=== PATIENT | female | born 1995 | race Two or more races ===

== ENCOUNTER → 2017-06-27 | Outpatient (REF) | payer OTHER ==
[2017-06-27 11:35] LABS: BASO % 0.7 % (0.0-1.0); EOS # 0.1 K/mm3 (0.0-0.50); EOS % 1.3 % (0.0-3.0); LARGE UNSTAINED CELL # 0.1 K/mm3 (0.0-0.4); LARGE UNSTAINED CELL % 1.7 % (0.0-4.0); LYMPH # 1.6 K/mm3 (1.5-6.5); LYMPH % 25.6 % (24.0-44.0); MEAN CORPUSCULAR HGB CONC 32.7 g/dl (32.0-36.5); MEAN CORPUSCULAR VOLUME 82.5 fl (80.0-96.0); MONO # 0.5 K/mm3 (0.0-0.8); MONO % 8.2 % (0.0-5.0); NEUTROPHILS # 3.8 K/mm3 (1.8-7.7); NEUTROPHILS % 62.5 % (36.0-66.0); PLATELET COUNT, AUTOMATED 426 k/mm3 (150-450); RED CELL DISTRIBUTION WIDTH 13.7 % (11.5-14.5); WHITE BLOOD COUNT 6.1 K/mm3 (4.0-10.0)
[2017-06-27 14:40] LABS: ALBUMIN 3.7 GM/DL (3.2-5.2); ALKALINE PHOSPHATASE 94 U/L (45-117); ALT/SGPT 23 U/L (12-78); ANION GAP 8 MEQ/L (8-16); AST/SGOT 17 U/L (15-37); BILIRUBIN,TOTAL 0.4 MG/DL (0.2-1.0); BLOOD UREA NITROGEN 7 MG/DL (7-18); CALCIUM LEVEL 9.2 MG/DL (8.5-10.1); CARBON DIOXIDE LEVEL 28 MEQ/L (21-32); CHLORIDE LEVEL 106 MEQ/L (98-107); CHOLESTEROL LEVEL 183 MG/DL (<200); FREE T4 1.08 NG/DL (0.78-1.33); GLUCOSE, FASTING 79 MG/DL (70-105); POTASSIUM SERUM 4.6 MEQ/L (3.5-5.1); SODIUM LEVEL 142 MEQ/L (136-145); TOTAL PROTEIN 7.4 GM/DL (6.4-8.2); TRIGLYCERIDES LEVEL 101 MG/DL (<150)
== END ==
LOC: M SFHCPLAZ 09:17
PROVIDERS: ATTEND Physician Assistant Medical
DX: Z00.00 Encounter for general adult medical examination without abnormal findings (principal); Z13.220 Encounter for screening for lipoid disorders

== ENCOUNTER → 2019-04-12 | Outpatient (REF) | payer OTHER ==
[2019-04-16 10:26] LABS: APPEARANCE, URINE TURBID (CLEAR); BACTERIA, URINE AUTO NEGATIVE (NEGATIVE); BILIRUBIN, URINE AUTO NEGATIVE (NEGATIVE); BLOOD, URINE BLOOD 3+ (NEGATIVE); COLOR, URINE AMBER (YELLOW); GLUCOSE, URINE (UA) AUTO NEGATIVE (NEGATIVE); KETONE, URINE AUTO NEGATIVE (NEGATIVE); LEUKOCYTE ESTERASE, URINE AUTO 1+ (NEGATIVE); NITRITE, URINE AUTO NEGATIVE (NEGATIVE); PROTEIN, URINE AUTO NEGATIVE (NEGATIVE); RBC, URINE AUTO 32 /HPF (0-3); SPECIFIC GRAVITY URINE AUTO 1.025 (1.002-1.035); SQUAMOUS EPITHELIAL CELL UR AU 1 /HPF (0-6); UROBILINOGEN, URINE AUTO 0.2 mg/dL (0.0-2.0); WBC, URINE AUTO 17 /HPF (0-3)
== END ==
LOC: M SFHCPLAZ 10:05
PROVIDERS: ATTEND Nurse Practitioner Family
DX: N92.0 Excessive and frequent menstruation with regular cycle (principal)

== ENCOUNTER → 2019-04-12 | Outpatient (REF) | payer OTHER ==
[2019-04-12 17:01] LABS: HEMATOCRIT 42.6 % (36.0-47.0); HEMOGLOBIN 14.1 g/dl (12.0-15.5); MEAN CORPUSCULAR HEMOGLOBIN 29.8 pg (27.0-33.0); MEAN CORPUSCULAR HGB CONC 33.1 g/dl (32.0-36.5); MEAN CORPUSCULAR VOLUME 90.1 fl (80.0-96.0); PLATELET COUNT, AUTOMATED 374 10^3/uL (150-450); RED BLOOD COUNT 4.73 10^6/uL (4.00-5.40); WHITE BLOOD COUNT 8.2 10^3/uL (4.0-10.0)
== END ==
LOC: M SFHCPLAZ 12:41
PROVIDERS: ATTEND Nurse Practitioner Family
DX: N92.0 Excessive and frequent menstruation with regular cycle (principal)

== ENCOUNTER → 2019-04-23 | Outpatient (CLI) | payer OTHER ==
--- NOTE | 2019-04-24 03:59 | REP ---
Clinical: Menorrhagia . Technique: Transabdominal pelvic ultrasound. Findings: Bladder is unremarkable and measures 11.3 x 9.7 x 9.0 cm . Normal anteverted uterus measures 6.7 x 2.5 x 4.1 cm . The endometrial complex measures 3.2 mm thickness. No discrete uterine or endometrial abnormalities are appreciated. Bilateral ovaries are normal in appearance. Right ovary measures 3.2 x 1.6 x 1.4 cm with 1.9 cm dominant follicle. Left ovary measures 2.6 x 0.8 x 2.6 cm. No pelvic fluid or adnexal mass lesion Impression: 1. Normal pelvic ultrasound
== END ==
LOC: M WHC 08:32
PROVIDERS: ATTEND Nurse Practitioner Family
DX: N92.0 Excessive and frequent menstruation with regular cycle (principal)

== ENCOUNTER → 2019-06-21 | Outpatient (REF) | payer OTHER | LOC: M SFHCPLAZ 10:00 | PROVIDERS: ATTEND Physician Assistant Medical | DX: Z30.9 Encounter for contraceptive management, unspecified (principal) ==

== ENCOUNTER → 2019-09-13 | Outpatient (REF) | payer OTHER | LOC: M SFHCWAGY 13:41 | PROVIDERS: ATTEND Nurse Practitioner Women's Health | DX: Z12.4 Encounter for screening for malignant neoplasm of cervix (principal); R87.612 Low grade squamous intraepithelial lesion on cytologic smear of cervix (LGSIL) ==

== ENCOUNTER → 2020-09-23 | Outpatient (CLI) | payer SELFPAY | LOC: M LABSMTC 11:16 | PROVIDERS: ATTEND Pediatrics | DX: Z20.828 Contact with and (suspected) exposure to other viral communicable diseases (principal) ==

== ENCOUNTER → 2020-11-27 | Outpatient (CLI) | payer SELFPAY | LOC: M LABSMTC 09:48 | PROVIDERS: ATTEND Pediatrics | DX: Z20.822 Contact with and (suspected) exposure to COVID-19 (principal) ==

== ENCOUNTER 2021-06-17 15:03 | Emergency (ER) | payer OTHER, BC ==
[~2021-06-17] VITALS: Ht 170.2 cm; Wt 79.8 kg
[2021-06-17 15:04] VITALS: BP 137/81
[2021-06-17] MEDS ORDERED: ZOLO100T PO (15:38)
[2021-06-17] MEDS ORDERED: DROS3TAB PO (15:38)
[2021-06-17 17:50] LABS: BASO # 0.1 10^3/uL (0.0-0.2); BASO % 0.6 % (0.0-1.0); EOS # 0.1 10^3/uL (0.0-0.5); EOS % 1.4 % (0.0-3.0); HEMATOCRIT 36.7 % (36.0-47.0); HEMOGLOBIN 12.1 g/dl (12.0-15.5); LYMPH # 2.9 10^3/uL (1.5-5.0); LYMPH % 34.1 % (24.0-44.0); MEAN CORPUSCULAR HEMOGLOBIN 28.1 pg (27.0-33.0); MEAN CORPUSCULAR VOLUME 85.2 fl (80.0-96.0); MONO # 0.9 10^3/uL (0.0-0.8); MONO % 10.1 % (2.0-8.0); NEUTROPHILS # 4.5 10^3/uL (1.5-8.5); NEUTROPHILS % 53.6 % (36.0-66.0); PLATELET COUNT, AUTOMATED 409 10^3/uL (150-450); RED BLOOD COUNT 4.31 10^6/uL (4.00-5.40); WHITE BLOOD COUNT 8.4 10^3/uL (4.0-10.0)
[2021-06-17 18:15] LABS: ALBUMIN 3.8 GM/DL (3.2-5.2); ALT/SGPT 32 U/L (12-78); BILIRUBIN,TOTAL 0.2 MG/DL (0.2-1.0); BLOOD UREA NITROGEN 9 MG/DL (7-18); CALCIUM LEVEL 9.1 MG/DL (8.5-10.1); CARBON DIOXIDE LEVEL 29 MEQ/L (21-32); CHLORIDE LEVEL 106 MEQ/L (98-107); CREATININE FOR GFR 0.84 MG/DL (0.55-1.30); GLOMERULAR FILTRATION RATE > 60.0 (>60); GLUCOSE, FASTING 84 MG/DL (70-100); POTASSIUM SERUM 4.4 MEQ/L (3.5-5.1); SODIUM LEVEL 138 MEQ/L (136-145); TOTAL PROTEIN 7.4 GM/DL (6.4-8.2)
[2021-06-17 18:24] LABS: HEPATITIS B SURFACE ANTIBODY NEGATIVE (POSITIVE)
[2021-06-17 18:34] LABS: HEPATITIS B SURFACE ANTIGEN NEGATIVE (NEGATIVE)
[2021-06-17 19:03] LABS: HEPATITIS C VIRUS ABY INDEX 0.1 INDEX (<0.8)
[2021-09-21] MEDS ORDERED: VITMTA PO (14:20)
== END 2021-06-17 18:10 | disposition home or self-care (01) ==
LOC: M ED 15:03
DX: Z77.21 Contact with and (suspected) exposure to potentially hazardous body fluids (principal); Z79.899 Other long term (current) drug therapy; Z79.3 Long term (current) use of hormonal contraceptives

== ENCOUNTER → 2021-09-23 | Outpatient (CLI) | payer BC, OTHER ==
[~2021-09-23] MED LIST: DROS3TAB PO; VITMTA PO; ZOLO100T PO
== END ==
LOC: M LABSMTC 10:18
PROVIDERS: ATTEND Anesthesiology
DX: Z11.52 Encounter for screening for COVID-19 (principal)

== ENCOUNTER 2021-09-28 06:05 | Observation (INO) | payer BC ==
[~2021-09-28] VITALS: Ht 167.6 cm; Wt 79.4 kg
[2021-09-28] VITALS (7 sets, daily range): BP systolic 107–132; BP diastolic 63–81
[~2021-09-28 06:05] MED LIST changes: +LIDOCAINE 1% MDV 20ML VIAL SQ PRN; +LR 1,000 ML IV ONE; +ceFAZolin SOD 2 GM in IV 1 EA IV ONE
--- OUTSIDE RECORDS SUMMARY | 2021-09-28 06:10 | CCD | Continuity of Care Document ---
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 AUTM [phone] [place]arg[place] AUTM [phone] Problems Description No Information Available Social History Type Date Description Comments Sex Female ETOH Use Rarely Tobacco Use Start: Unknown Home Is Smoke Free Allergies and adverse reactions Description No Known Drug Allergies Medications Active Medications SIG Qnty Indications Ordering Provide r Date Gianna Unknown Sertraline HCL 100mg Tablets Unknown Multi Vitamin Unknown Immunizations Description No Information Available Vital Signs Date Vital Result Comment 09/15/2021 4:01pm BP Systolic 122 mmHg BP Diastolic 74 mmHg Heart Rate 80 /min Respiratory Rate 16 /min Body Temperature 97.9 F Height 66 inches 5'6" Weight 173.00 lb BMI (Body Mass Index) 27.9 kg/m2 [place] Body Weight 130 lb Weight 78.473 kg BSA (Body Surface Area) 1.88 m2 05/03/2021 9:27am BP Systolic 128 mmHg BP Diastolic 84 mmHg Heart Rate 76 /min Respiratory Rate 16 /min Body Temperature 98.4 F Height 66 inches 5'6" Weight 174.00 lb BMI (Body Mass Index) 28.1 kg/m2 [place] Body Weight 130 lb Weight 78.926 kg BSA (Body Surface Area) 1.88 m2 Results Description No Information Available Procedures Date Code Description Status 05/03/2021 87063 Office/Outpatient New Moderate M DM 45-59 Minutes Completed Medical Devices Description No Information Available Encounters Type Date Location Provider Dx Diagnosis Office Visit 05/03/2021 9:15a [facility] Libby Hicks, DO N62 Hypertrophy of breast N64.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 of breast Assessments Date Code Description Provider 09/15/2021 N62 Hypertrophy of breast Libby Pale y, DO 09/15/2021 N64.81 Ptosis of breast Libby Marisel, DO 09/15/2021 Z01.818 Encounter for other preprocedura l examination Libby Marisel, DO 05/03/2021 N62 Hypertrophy of breast Libby Pale y, DO 05/03/2021 N64.81 Ptosis of breast Libby Marisel, DO Plan of Treatment Future Appointment(s):* 09/28/2021 7:30 am - Libby Hicks DO at [facility] Surgery * 10/04/2021 10:15 am - Libby Hicks DO at [facility] Plastic [facility] Functional Status Description No Information Available Mental Status Description No Information Available Referrals Description No Information Available
--- OUTSIDE RECORDS SUMMARY | 2021-09-28 06:10 | CCD | Continuity of Care Document ---
Author Author Dalton CAPONE M.D. Organization Unknown Address [address] [place] [address] Phone [phone] Care Team Providers Care Bilingual Receptionist Name Role Phone Libby Joiner DO AUTM [phone] Problems Active Problems Provider Date Generalized anxiety disorder Talisha Stock FNP Onset: 08/2020 Social History Type Date Description Comments Sex Unknown Tobacco Use Start: Unknown End: Unknown Quit vape d for 3 months ETOH Use Occasionally consumes alcohol Tobacco Use Start: Unknown Patient has never smoked Recreational Drug Use Denies Drug Use Smoking Status Reviewed: 03/10/21 Patient has never smoked Exercise Type/Frequency Does not exercise Tattoo/Piercing Pierced ears Sun Exposure Minimum amount of sun exposure Sun Exposure Uses sunscreen Sun Exposure Uses greater than 30 SPF Sun Exposure Has experienced blistering from sunburns Sun Exposure History of sunburn Sun Exposure Does not use tanning beds Seat Belt/Car Seat Always uses seat belt Bike Helmet does not ride Smoke Alarms Yes Smoke Alarms Carbon Monoxide Detector: Yes Allergies and adverse reactions Description No Known Drug Allergies Medications Active Medications SIG Qnty Indications Ordering Provide r Date Drospirenone-Ethinyl Estradiol 3-0.03mg Tablets Take 1 Tablet By Mouth Daily 84tabs Z00.00 Deyvi Stock FNP 06/02/2021 Sertraline HCL 100mg Tablets Take 1 Tablet By Mouth Every Day 90tabs F41.1 Talisha Stock FNP 03/04/20 20 Hydroxyzine HCL 10mg Tablets 1-2 tab by mouth three times a day as needed anxiety 60tabs F41.1 Talisha Campos ch, FNP 01/20/2020 Probiotic Capsules 1 by mout h daily Unknown Immunizations CPT Code Status Date Vaccine Lot # [id number] Given 12/17/2020 Moderna Sars-(Co vid-19) vaccine, mRNA, LNP-S, PF, 100 mcg/ 0.5 mL [id number] Given 11/17/2020 Moderna Sars-(Co vid-19) vaccine, mRNA, LNP-S, PF, 100 mcg/ 0.5 mL Vital Signs Date Vital Result Comment 03/10/2021 4:50pm BP Systolic 128 mmHg BP Diastolic 89 mmHg Heart Rate 82 /min Body Temperature 97.3 F Respiratory Rate 16 /min Height 67 inches 5'7" Weight 174.00 lb O2 % BldC Oximetry 98 % Peak Expiratory Flow Rate 419 Estimated Peak Flow Rate Last Menstrual Period 7163394 [place] Body Weight 135 lb BMI (Body Mass Index) 27.2 kg/m2 10/08/2020 8:42am BP Systolic 115 mmHg BP Diastolic 70 mmHg Heart Rate 99 /min Body Temperature 96.8 F Respiratory Rate 17 /min Height 67 inches 5'7" Weight 164.12 lb O2 % BldC Oximetry 99 % Peak Expiratory Flow Rate 419 Estimated Peak Flow Rate Last Menstrual Period [id number] 15 days long [place] Body Weight 135 lb BMI (Body Mass Index) 25.7 kg/m2 Results Test Acquired Date Facility Test Result H/L Range Note Coronavirus 2019 Nasopharygeal 09/23/[address]21 [address] [place], [place] [id number] [phone] Coronavirus 2019 Nasopharygeal ASSAY INFORMATIO <SEE N OTE> 1 CBC With Differential 06/17/2021 [place] [id number] [phone] White Blood Count 8.4 10 Normal 4.0-10.0 Red Blood Count 4.31 10 Normal 4.00-5.40 Hemoglobin 12.1 g/dL Normal 12.0-15.5 Hematocrit 36.7 % Normal 36.0-47.0 Mean Corpuscular Volume 85.2 fl Normal 80.0-96.0 Mean Corpuscular Hemoglobin 28.1 pg Normal 27.0-33.0 Mean Corpuscular HGB Conc 33.0 g/dL Normal 32.0-36.5 Red Cell Distribution Width 11.7 % Normal 11.5-14.5 Platelet Count, Automated 409 10 Normal 150-450 Neutrophils % 53.6 % Normal 36.0-66.0 Lymph % 34.1 % Normal 24.0-44.0 [place] % 10.1 % High 2.0-8.0 Eos % 1.4 % Normal 0.0-3.0 Baso % 0.6 % Normal 0.0-1.0 Immature Granulocyte % 0.2 % Normal 0-3.0 Nucleated Red Blood Cell % 0.0 % Normal 0-0 Neutrophils # 4.5 10 Normal 1.5-8.5 Lymph # 2.9 10 Normal 1.5-5.0 [place] # 0.9 10 High 0.0-0.8 Eos # 0.1 10 Normal 0.0-0.5 Baso # 0.1 10 Normal 0.0-0.2 Comprehensive Metabolic Profil 06/17/[address] [place] [address] [phone] Glucose, Fasting 84 mg/dL Normal 70-100 Blood Urea Nitrogen 9 mg/dL Normal 7-18 Creatinine For GFR 0.84 mg/dL Normal 0.55-1.30 Glomerular Filtration Rate > 60.0 Normal >60 2 Sodium Level 138 mEq/L Normal 136-145 Potassium Serum 4.4 mEq/L Normal 3.5-5.1 Chloride Level 106 mEq/L Normal 98-107 Carbon Dioxide Level 29 mEq/L Normal 21-32 Anion Gap 3 mEq/L Low 8-16 Calcium Level 9.1 mg/dL Normal 8.5-10.1 Ast/Sgot 22 U/L Normal 7-37 Alt/SGPT 32 U/L Normal 12-78 Alkaline Phosphatase 79 U/L Normal 45-117 Bilirubin,Total 0.2 mg/dL Normal 0.2-1.0 Total Protein 7.4 GM/DL Normal 6.4-8.2 Albumin 3.8 GM/DL Normal 3.2-5.2 Albumin/Globulin Ratio 1.1 Low 1.2-2.2 Laboratory test finding 06/17/2021 [place] [address] [phone] Hepatitis C Virus Yelena Index 0.1 INDEX Normal <0.8 3 Hepatitis B Surface Antigen NEGATIVE Normal Negative Hepatitis B Surface Antibody NEGATIVE Normal Positive 1 ASSAY INFORMATION: Real Time RT-PCR NOTE: The COVID-19 assay has been cleared by the U.S. Food and Drug Administration under the Emergency Use Authorization (EUA). [facility] and [facility] are designated as high complexity laboratories by the Clinical Laboratory Improvement Amendments of 1988(CLIA) and are qualified to perform this test. 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 Procedures Description No Information Available Medical Devices Description No Information Available Encounters Description No Information Available Assessments Description No Information Available Plan of Treatment Future Appointment(s):* 10/05/2021 9:00 am - Talisha Stock FNP at Main Office 03/10/2021 - Talisha Stock FNP* N92.0 Excessive and frequent menstruation with regular cycle* Comments:* start Lizeth 28 and see response * M54.6 Pain in thoracic spine* Comments:* refer for breast reduction surgery * All * New Medication:* Lizeth 28 3-0.03 mg - one po daily Functional Status Functional Condition Comment Date Status Glasses Active Independent with all ADL's Activ e Independent with all IADL's Acti ve Mental Status Mental Condition Comment Date Status None Active Can Understand Information Activ e Referrals Description No Information Available
--- OUTSIDE RECORDS SUMMARY | 2021-09-28 06:10 | CCD | Continuity of Care Document ---
Author Author Dalton HICKS DO Organization Unknown Address [address] [place] [address] Phone [phone] Care Team Providers Care Sliver Cutter Name Role Phone Hanna Norris MD AUTM [phone] AUTM Unavailable Talisha Stock N.P. AUTM [phone] [place] AUTM [phone] Problems Description No Information Available Social History [...] Available Vital Signs Date Vital Result Comment 05/03/2021 9:27am BP Systolic 128 mmHg BP Diastolic 84 mmHg Heart Rate 76 /min Respiratory Rate 16 /min Body Temperature 98.4 F Height 66 inches 5'6" Weight 174.00 lb BMI (Body Mass Index) 28.1 kg/m2 [place] Body Weight 130 lb Weight 78.926 kg BSA (Body Surface Area) 1.88 m2 08/06/2012 3:17pm Body Temperature 98.0 F Height 66 inches 5'6" Weight 141.00 lb BMI (Body Mass Index) 22.8 kg/m2 Weight 63.958 kg Weight Percentile 83rd Height Percentile 80 % Results Description No Information Available Procedures Date Code Description Status 05/03/2021 57622 Office/Outpatient New Moderate M DM 45-59 Minutes Completed Medical Devices Description No Information Available Encounters Type Date Location Provider Dx Diagnosis Office Visit 05/03/2021 9:15a [facility] Libby Hicks DO N62 Hypertrophy of breast N64.81 Ptosis of breast Assessments Date Code Description Provider 05/03/2021 N62 Hypertrophy of breast Libby villa, DO 05/03/2021 N64.81 Ptosis of breast Libby Hicks DO Plan of Treatment Future Appointment(s):* 09/28/2021 7:30 am - Libby Hicks DO at [facility] * 10/04/2021 10:15 am - Libby Hicks DO at [facility] Functional Status Description No Information Available Mental Status Description No Information Available Referrals Description No Information Available
--- OUTSIDE RECORDS SUMMARY | 2021-09-28 06:10 | CCD ---
Author Author [facility] Organization [facility] Address Unknown Phone Unavailable Care Team Providers Care Trucking Manager Name Role Phone Pleskach, Talisha EDI MANAGER Unavailable Unavailable Pleskach, Talisha EDI MANAGER Unavailable Unavailable Pleskach, Talisha EDI MANAGER Unavailable Unavailable Pleskach, Talisha EDI MANAGER Unavailable Unavailable Pleskach, Talisha EDI MANAGER Unavailable Unavailable Pleskach, Talisha EDI MANAGER Unavailable Unavailable Pleskach, Talisha EDI MANAGER Unavailable Unavailable Pleskach, Talisha EDI MANAGER Unavailable Unavailable Pleskach, Talisha EDI MANAGER Unavailable Unavailable Pleskach, Talisha EDI MANAGER Unavailable Unavailable Pleskach, Talisha EDI MANAGER Unavailable Unavailable Pleskach, Talisha EDI MANAGER Unavailable Unavailable Pleskach, Talisha EDI MANAGER Unavailable Unavailable Pleskach, Talisha EDI MANAGER Unavailable Unavailable Pleskach, Talisha EDI MANAGER Unavailable Unavailable Pleskach, Talisha EDI MANAGER Unavailable Unavailable Pleskach, Talisha EDI MANAGER Unavailable Unavailable Pleskach, Talisha EDI MANAGER Unavailable Unavailable Pleskach, Talisha EDI MANAGER Unavailable Unavailable Pleskach, Talisha EDI MANAGER Unavailable Unavailable Pleskach, Talisha EDI MANAGER Unavailable Unavailable Pleskach, Talisha EDI MANAGER Unavailable Unavailable Pleskach, Talisha EDI MANAGER Unavailable Unavailable Pleskach, Talisha EDI MANAGER Unavailable Unavailable Pleskach, Talisha EDI MANAGER Unavailable Unavailable Pleskach, Talisha EDI MANAGER Unavailable Unavailable Pleskach, Talisha EDI MANAGER Unavailable Unavailable Pleskach, Talisha EDI MANAGER Unavailable Unavailable Pleskach, Talisha EDI MANAGER Unavailable Unavailable Pleskach, Talisha EDI MANAGER Unavailable Unavailable Pleskach, Talisha EDI MANAGER Unavailable Unavailable Pleskach, Talisha EDI MANAGER Unavailable Unavailable Pleskach, Talisha EDI MANAGER Unavailable Unavailable Pleskach, Talisha EDI MANAGER Unavailable Unavailable Pleskach, Talisha EDI MANAGER Unavailable Unavailable Pleskach, Talisha EDI MANAGER Unavailable Unavailable Pleskach, Talisha EDI MANAGER Unavailable Unavailable Pleskach, Talisha EDI MANAGER Unavailable Unavailable Pleskach, Talisha EDI MANAGER Unavailable Unavailable Pleskach, Talisha EDI MANAGER Unavailable Unavailable Pleskach, Talisha EDI MANAGER Unavailable Unavailable Pleskach, Talisha EDI MANAGER Unavailable Unavailable Pleskach, Talisha EDI MANAGER Unavailable Unavailable Pleskach, Talisha EDI MANAGER Unavailable Unavailable FABIOLA, E RAYSHAWN DO Unavailable Unavailable FABIOLA, E RAYSHAWN DO Unavailable Unavailable FABIOLA, E RAYSHAWN DO Unavailable Unavailable FABIOLA, E RAYSHAWN DO Unavailable Unavailable FABIOLA, E RAYSHAWN DO Unavailable Unavailable FABIOLA, E RAYSHAWN DO Unavailable Unavailable FABIOLA, E RAYSHAWN DO Unavailable Unavailable FABIOLA, E RAYSHAWN DO Unavailable Unavailable FABIOLA, E RAYSHAWN DO Unavailable Unavailable FABIOLA, E RAYSHAWN DO Unavailable Unavailable FABIOLA, E RAYSHAWN DO Unavailable Unavailable FABIOLA, E RAYSHAWN DO Unavailable Unavailable FABIOLA, E RAYSHAWN DO Unavailable Unavailable FABIOLA, E RAYSHAWN DO Unavailable Unavailable FABIOLA, E RAYSHAWN DO Unavailable Unavailable FABIOLA, E RAYSHAWN DO Unavailable Unavailable FABIOLA, E RAYSHAWN DO Unavailable Unavailable FABIOLA, E RAYSHAWN DO Unavailable Unavailable FABIOLA, E RAYSHAWN DO Unavailable Unavailable FABIOLA, E RAYSHAWN DO Unavailable Unavailable FABIOLA, E RAYSHAWN DO Unavailable Unavailable FABIOLA, E RAYSHAWN DO Unavailable Unavailable Renard ATKINSON MD Unavailable Unavailable Renard ATKINSON MD Unavailable Unavailable Renard ATKNISON MD Unavailable Unavailable Renard ATKINSON MD Unavailable Unavailable NOT, SPECIFIED Unavailable Unavailable Re-disclosure Warning The records that you are about to access may contain information from federally-assisted alcohol or drug abuse programs. If such information is present, then the following federally mandated warning applies: This information has been disclosed to you from records protected by federal confidentiality rules (42 CFR part 2). The federal rules prohibit you from making any further disclosure of this information unless further disclosure is expressly permitted by the written consent of the person to whom it pertains or as otherwise permitted by 42 CFR part 2. A general authorization for the release of medical or other information is NOT sufficient for this purpose. The Federal rules restrict any use of the information to criminally investigate or prosecute any alcohol or drug abuse patient.The records that you are about to access may contain highly sensitive health information, the redisclosure of which is protected by Article 27-F of the [facility] Public Health law. If you continue you may have access to information: Regarding HIV / AIDS; Provided by facilities licensed or operated by the [facility] Office of Mental Health; or Provided by the [facility] Office for People With Developmental Disabilities. If such information is present, then the following [facility] mandated warning applies: This information has been disclosed to you from confidential records which are protected by state law. State law prohibits you from making any further disclosure of this information without the specific written consent of the person to whom it pertains, or as otherwise permitted by law. Any unauthorized further disclosure in violation of state law may result in a fine or intermediate sentence or both. A general authorization for the release of medical or other information is NOT sufficient authorization for further disc losure. Encounters Encounter Providers Location Date Indications Data Source(s ) Outpatient Attender: RAYSHAWN Lance/Raina/Odilon/Phoebe villaseñor 05/03/2021 09:15:00 AM EDT [facility] ([facility], ) Outpatient Attender: Talisha Stock [facility] Main Office 03/10/2021 0 4:45:00 PM EDT [facility] ([facility] Outpatient Attender: Talisha Stock [facility] Main Office 10/08/2020 0 7:30:00 AM EST [facility] ([facility] Outpatient Attender: LALITO ARTHUR eferrer: LALITO ATKINSON MDConsultant: SPECIFIED NOT 09/07/2020 12:55:00 PM EDT - 09/07/2020 01:05:00 PM EDT [facility] Immunizations Vaccine Date Status Description Data Source(s) COVID-19 VACCINE Moderna 12/17/2020 12:00:00 AM EST completed [facility] Vaccine Series Complete: YESThis Data wa s Submitted to [facility] [employer]. Moderna Sars-(Covid-19) vaccine, mRNA, LNP-S, PF, 100 mcg/ 0.5 mL 12/16/2020 11:00:00 PM EST completed [facility] COVID-19 VACCINE Moderna 11/17/2020 12:00:00 AM EST completed [facility] Vaccine Series Complete: NOThis Data was Submitted to [facility] [employer]. Moderna Sars-(Covid-19) vaccine, mRNA, LNP-S, PF, 100 mcg/ 0.5 mL 11/16/2020 11:00:00 PM EST completed [facility] Medications Medication Brand Name Start Date Product Form Dose Route Admi nistrative Instructions Pharmacy Instructions Status Indications Reaction Description Data Source(s) drospirenone 3 MG / Ethinyl Estradiol 0.03 MG Oral Tab let Drospirenone-Ethinyl Estradiol 06/02/2021 12:00:00 AM EDT active [facility] ([facility] Lizeth 28 Lizeth 28 03/10/2021 12:00:00 AM EDT ORAL com pleted [facility] ([facility] Norgestim-Eth Estrad Triphasic Norgestim-Eth Estrad Triphasi c 02/10/2021 12:00:00 AM EDT ORAL completed [facility] ([facility] Levonorgestrel/Ethinyl Estradiol Levonorgestrel/Ethinyl Estr adiol 10/08/2020 12:00:00 AM EST ORAL completed [facility] ([facility] Insurance Providers Payer name Policy type / Coverage type Policy ID Covered democrat ID Covered democrat's relationship to tabarse Policy Tabares Plan Information 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 [id number] Patient [id number] [facility] SP EXCELLUS BC-BS PPO [id number] MO2 [id number] EXCELLUS BC-BS PPO [id number] SP [id number] SELF PAY ONLY [id number] SP [id number] SELF PAY [facility] [id number] SP [id number] [facility] MEDICAID HMO -O/P [id number] 19 [id number] [facility] MEDICAID HMO -O/P [id number] 19 [id number] [facility] MEDICAID HMO -O/P [id number] 18 [id number] BLUE CROSS BLUE SHIELD-O/P [id number] ANSI-Not a Secondary Insurance [id number] ANSI-Not a Secondary Insurance [id number] [facility] CARE [id number] SP [id number] ANSI-Not a Secondary Insurance [id number] ANSI-Not a Secondary Insurance [id number] ANSI-Not a Secondary Insurance [id number] ANSI-Not a Secondary Insurance [id number] ANSI-Not a Secondary Insurance [id number] ANSI-Not a Secondary Insurance [id number] ANSI-Not a Secondary Insurance [id number] ANSI-Not a Secondary Insurance [id number] ANSI-Not a Secondary Insurance [id number] ANSI-Not a Secondary Insurance [id number] [facility] HEALTH C[facility] O [id number] S [id number] [place]BS [place] PPO [id number] MO2 [id number] Problems, Conditions, and Diagnoses Code Display Name Description Problem Type Effective Dates Data Source(s) Z1159 Encounter for screening for other viral diseases Encounter for screening for other viral diseases Diagnosis 09/07/2020 12:55:00 PM EDT [facility] Surgeries/Procedures Procedure Description Date Indications Data Source(s) OFFICE OUTPATIENT NEW 45 MINUTES 05/03/2021 12:00:00 A M EDT [facility] ([facility], ) OFFICE OUTPATIENT VISIT 15 MINUTES 03/10/2021 12:00:00 AM EDT [facility] ([facility] Results ID Date Data Source [id number] 09/23/2021 10:15:00 AM EDT [facility] Name Value Range Interpretation Code Description Data Sophie rce(s) Supporting Document(s) SARS-CoV-2 (COVID-19) RNA [Presence] in Respiratory specimen by CARMELITA with probe detection Not Detected [facility] This lab was ordered by [facility] and reported by [employer] ID Date Data Source [id number] 09/23/2021 10:15:00 AM EDT [facility] ([facility] Name Value Range Interpretation Code Description Data [facility] Supporting Document(s) Coronavirus 2019 Nasopharygeal Laboratory test result [facility] ([facility] ASSAY INFORMATION: Real Time RT-PCR NOTE: The COVID-19 assay has been cleared by the U.S. Food and Drug Administration under the Emergency Use Authorization (EUA). [employer] and [facility] are designated as high complexity laboratories by the Clinical Laboratory Improvement Amendments of 1988(CLIA) and are qualified to perform this test. Not Detected ID Date Data Source [id number] 06/17/2021 05:26:00 PM EDT [facility] ([facility] Name Value Range Interpretation Code Description Data [facility] Supporting Document(s) Hepatitis C virus Ab [Units/volume] in Serum by Immunoassay 0.1 INDEX [facility] ([facility] Negative Not infected with HCV, unless recent infection is suspected or other evidence exists to indicate HCV infection. Hepatitis B virus surface Ag [Presence] in Serum or Pl asma by Immunoassay Laboratory test result [facility] ([facility] Hepatitis B virus surface Ab [Presence] in [facility] test result [facility] ID Date Data Source [id number] 06/17/2021 05:26:00 PM EDT [facility] ([facility] Name Value Range Interpretation Code Description Data [facility] rce(s) Supporting Document(s) Blood Urea Nitrogen 9 mg/dL 7-18 [facility] ([facility] Glucose, Fasting 84 mg/dL 70-100 [facility] ([facility] Creatinine For GFR 0.84 mg/dL 0.55-1.30 [facility] ([facility] Glomerular Filtration Rate Laboratory test result [facility] ([facility] <content>Units are mL/min/1.73 m2</content>
<content></content>
<content>Chronic Kidney Disease Staging per NKF:</content>
<content></content>
<content>Stage I & II GFR >=60 Normal to Mildly Decreased</content>
<content>Stage III GFR 30- 59 Moderately Decreased</content>
<content>Stage IV GFR 15-29 Severely Decreased</content>
<content>Stage V GFR <15 Very Little GFR Left</content>
<content>ESRD GFR <15 on TOP IRONER</content>
<content></content> Potassium Serum 4.4 meq/L 3.5-5.1 [facility] ([facility] Chloride Level 106 meq/L 98-107 [facility] Sodium Level 138 meq/L 136-145 [facility] ([facility] Carbon Dioxide Level 29 meq/L 21-32 [facility] ([facility] Anion Gap 3 meq/L 8-16 [facility] Ast/Sgot 22 U/L 7-37 [facility] Calcium Level 9.1 mg/dL 8.5-10.1 [facility] ([facility] Alkaline Phosphatase 79 U/L 45-117 [facility] ([facility] Bilirubin,Total 0.2 mg/dL 0.2-1.0 [facility] ([facility] Alt/SGPT 32 U/L 12-78 [facility] Albumin 3.8 GM/DL 3.2-5.2 [facility] Total Protein 7.4 GM/DL 6.4-8.2 [facility] ([facility] Albumin/Globulin Ratio 1.1 1.2-2.2 [facility] ([facility] ID Date Data Source [id number] 06/17/2021 05:26:00 PM EDT [facility] ([facility] Name Value Range Interpretation Code Description Data Sophie rce(s) Supporting Document(s) Red Blood Count 4.31 10 4.00-5.40 [facility] ([facility] White Blood Count 8.4 10 4.0-10.0 [facility] ([facility] Hemoglobin 12.1 g/dL 12.0-15.5 [facility] ([facility] Hematocrit 36.7 % 36.0-47.0 [facility] Mean Corpuscular Hemoglobin 28.1 pg 27.0-33.0 [facility] ([facility] Mean Corpuscular Volume 85.2 fl 80.0-96.0 M [facility] ([facility] Red Cell Distribution Width 11.7 % 11.5-14.5 [facility] ([facility] Platelet Count, Automated 409 10 150-450 [facility] Mean Corpuscular HGB Conc 33.0 g/dL 32.0-36.5 [facility] ([facility] Lymph % 34.1 % 24.0-44.0 [facility] Neutrophils % 53.6 % 36.0-66.0 [facility] ([facility] Blanco % 10.1 % 2.0-8.0 [facility] Eos % 1.4 % 0.0-3.0 [facility] Baso % 0.6 % 0.0-1.0 [facility] Nucleated Red Blood Cell % 0.0 % 0-0 [facility] ([facility] Immature Granulocyte % 0.2 % 0-3.0 [facility] ([facility] Lymph # 2.9 10 1.5-5.0 [facility] Blanco # 0.9 10 0.0-0.8 [facility] Neutrophils # 4.5 10 1.5-8.5 [facility] ([facility] Baso # 0.1 10 0.0-0.2 [facility] Eos # 0.1 10 0.0-0.5 [facility] ID Date Data Source [id number] 11/27/2020 11:00:00 AM EST [facility] Name Value Range Interpretation Code Description Data Sophie rce(s) Supporting Document(s) SARS coronavirus 2 RNA Detected [facility] This lab was ordered by [facility] and reported by [facility]. ID Date Data Source [id number] 11/03/2020 02:16:00 PM EST [facility] Name Value Range Interpretation Code Description Data Sophie rce(s) Supporting Document(s) SARS coronavirus 2 RNA [facility] This lab was ordered by [facility] and reported by [facility]. ID Date Data Source [id number] 10/27/2020 10:00:00 AM EST [facility] Name Value Range Interpretation Code Description Data Sophie rce(s) Supporting Document(s) SARS coronavirus 2 RNA [facility] This lab was ordered by [facility] and reported by [facility]. ID Date Data Source [id number] 10/20/2020 01:40:00 PM EST [facility] Name Value Range Interpretation Code Description Data Sophie rce(s) Supporting Document(s) SARS coronavirus 2 RNA [facility] This lab was ordered by [facility] and reported by [facility]. ID Date Data Source [id number] 10/13/2020 09:00:00 AM EST [facility] Name Value Range Interpretation Code Description Data Sophie rce(s) Supporting Document(s) SARS coronavirus 2 RNA [facility] This lab was ordered by [facility] and reported by [facility]. ID Date Data Source [id number] 10/06/2020 10:00:00 AM EST [facility] Name Value Range Interpretation Code Description Data Sophie rce(s) Supporting Document(s) SARS coronavirus 2 RNA [facility] This lab was ordered by [facility] and reported by [facility]. ID Date Data Source [id number] 09/23/2020 12:00:00 AM EST [facility] Name Value Range Interpretation Code Description Data Sophie rce(s) Supporting Document(s) 2019-nCoV RNA XXX CARMELITA+probe-Imp [facility] This lab was ordered by [facility] and reported by [employer]. ID Date Data Source [id number] 09/23/2020 12:00:00 AM EST [facility] Name Value Range Interpretation Code Description Data Sophie rce(s) Supporting Document(s) SARS-CoV2 Rapid Antigen [facility] This lab was ordered by [facility] and reported by [facility]. ID Date Data Source [id number] 09/07/2020 07:00:00 AM EDT [facility] Name Value Range Interpretation Code Description Data Sophie rce(s) Supporting Document(s) SARS coronavirus 2 RNA [facility] This lab was ordered by [facility] mervin and reported by [facility]. ID Date Data Source [id number] 09/08/2020 07:07:00 PM EDT [facility] Name Value Range Interpretation Code Description Data Sophie rce(s) Supporting Document(s) SARS-CoV-2, CARMELITA Not Detected Not Detected [facility] This nucleic acid amplification test was developed and its performancecharacteristics determined by [facility]. Nucleic acidamplification tests include PCR and TMA. This test has not been FDAcleared or approved. This test has been authorized by FDA under anEmergency Use Authorization (EUA). This test is only authorized forthe duration of time the declaration that circumstances existjustifying the authorization of the emergency use of in vitrodiagnostic tests for detection of SARS-CoV-2 virus and/or diagnosisof COVID-19 infection under section 564(b)(1) of the Act, 21 U.S.C.360bbb-3(b) (1), unless the authorization is terminated or revokedsooner.When diagnostic testing is negative, the possibility of a falsenegative result should be considered in the context of a patient'srecent exposures and the presence of clinical signs and symptomsconsistent with COVID- 19. An individual without symptoms of COVID-19and who is not shedding SARS-CoV-2 virus would expect to have anegative (not detected) result in this assay. Procedure Social History Code Duration Value Status Description Data Source(s ) Smoking 03/10/2021 12:00:00 AM EDT Patient has never smoked co mpleted Patient has never smoked [facility] ([facility] Vital Signs ID Date Data Source UNK Name Value Range Interpretation Code Description Data Source(s) Heart rate 80 /min 80 /min [facility] Systolic blood pressure 122 mm[Hg] 122 mm[Hg] M [facility] ([facility]) Respiratory rate 16 /min 16 /min [facility] Body height 66 [in_i] 66 [in_i] [facility] ([facility]) 5'6" Body mass index (BMI) [Ratio] 27.9 kg/m2 27.9 k g/m2 [facility] Body weight 78.473 kg 78.473 kg [facility] ([facility]) Diastolic blood pressure 74 mm[Hg] 74 mm[Hg] [facility] ([facility]) Body temperature 97.9 [degF] 97.9 [degF] [facility] ([facility]) Body weight 173.00 [lb_av] 173.00 [lb_av] [facility] ([facility]) [place] body weight 130 [lb_av] 130 [lb_av] [facility] ([facility]) Body surface area Derived from formula 1.88 m2 1.88 m2 [facility] ([facility]) Heart rate 76 /min 76 /min [facility] ([facility]) Body temperature 98.4 [degF] 98.4 [degF] [facility] Diastolic blood pressure 84 mm[Hg] 84 mm[Hg] [facility] ([facility]) Systolic blood pressure 128 mm[Hg] 128 mm[Hg] [facility] Body height 66 [in_i] 66 [in_i] [facility] ([facility]) 5'6" [place] body weight 130 [lb_av] 130 [lb_av] [facility] ([facility]) Body weight 174.00 [lb_av] 174.00 [lb_av] [facility] ([facility]) Body weight 78.926 kg 78.926 kg [facility] ([facility]) Respiratory rate 16 /min 16 /min [facility]) Respiratory rate 16 /min 16 /min [facility]) Body temperature 98.4 [degF] 98.4 [degF] [facility] ([facility]) Body height 66 [in_i] 66 [in_i] [facility] ([facility]) 5'6" Body weight 174.00 [lb_av] 174.00 [lb_av] [facility] ([facility]) Body mass index (BMI) [Ratio] 28.1 kg/m2 28.1 k g/m2 [facility] ([facility]) [place] body weight 130 [lb_av] 130 [lb_av] [facility] ([facility]) Body weight 78.926 kg 78.926 kg [facility] ([facility]) Body surface area Derived from formula 1.88 m2 1.88 m2 [facility] ([facility]) Body mass index (BMI) [Ratio] 28.1 kg/m2 28.1 k g/m[facility] Body surface area Derived from formula 1.88 m2 1.88 m2 [facility] ([facility]) Systolic blood pressure 128 mm[Hg] 128 mm[Hg] M [facility] ([facility] Heart rate 82 /min 82 /min [facility] Body temperature 97.3 [degF] 97.3 [degF] [facility] Respiratory rate 16 /min 16 /min [facility] ( [facility] Body height 67 [in_i] 67 [in_i] [facility] ([facility] 5'7" Body weight 174.00 [lb_av] 174.00 [lb_av] [facility] ([facility] Oxygen saturation in Arterial blood by Pulse oximetry 98 % 98 % [facility] [place] body weight 135 [lb_av] 135 [lb_av] [facility] ([facility] Body mass index (BMI) [Ratio] 27.2 kg/m2 27.2 k g/m2 [facility] Diastolic blood pressure 89 mm[Hg] 89 mm[Hg] [facility] Heart rate 99 /min 99 /min [facility] Body temperature 96.8 [degF] 96.8 [degF] [facility] Respiratory rate 17 /min 17 /min [facility] ( [facility] Body height 67 [in_i] 67 [in_i] [facility] ([facility] 5'7" Body weight 164.12 [lb_av] 164.12 [lb_av] MEDEN T ([facility] Oxygen saturation in Arterial blood by Pulse oximetry 99 % 99 % [facility] ([facility] Systolic blood pressure 115 mm[Hg] 115 mm[Hg] M EDENT ([facility] Diastolic blood pressure 70 mm[Hg] 70 mm[Hg] [facility] ([facility] [place] body weight 135 [lb_av] 135 [lb_av] MEDEN T ([facility] Body mass index (BMI) [Ratio] 25.7 kg/m2 25.7 k g/m2 [facility] ([facility]
[2021-09-28 06:52] LABS: HEMATOCRIT 39.2 % (36.0-47.0); HEMOGLOBIN 13.1 g/dl (12.0-15.5); MEAN CORPUSCULAR HEMOGLOBIN 27.5 pg (27.0-33.0); MEAN CORPUSCULAR HGB CONC 33.4 g/dl (32.0-36.5); MEAN CORPUSCULAR VOLUME 82.4 fl (80.0-96.0); PLATELET COUNT, AUTOMATED 508 10^3/uL (150-450); RED BLOOD COUNT 4.76 10^6/uL (4.00-5.40); WHITE BLOOD COUNT 9.2 10^3/uL (4.0-10.0)
[2021-09-28] MEDS ORDERED: GENTAMICIN SULF 80MG/2ML VIAL As Ordered ONE (07:14)
[2021-09-28] MEDS ORDERED: LIDOCAINE 1% MDV 20ML VIAL As Ordered ONE (07:14)
[2021-09-28] MEDS ORDERED: EPINEPHrine INJ 1 MG/ML 1ML AMP As Ordered ONE (07:15)
[2021-09-28] MEDS ORDERED: BUPIVACAINE LIPOSOME/PF 1.3% 20ML VIAL (13.3MG/ML)(EXPAREL)(C9290 PER1MG) As Ordered ONE (07:15)
[2021-09-28] MEDS ORDERED: dexameTHASONE 4 MG/ML 1ML VIAL (J1100 PER 1MG) As Ordered ONE (07:23)
[2021-09-28] MEDS ORDERED: LIDOCAINE 2% 100MG/5ML SDV (FOR ANES.) As Ordered ONE (07:23)
[2021-09-28] MEDS ORDERED: ROCURONIUM BROMIDE 50 MG/5 ML VIAL As Ordered ONE ×3 (07:23→10:09)
[2021-09-28] MEDS ORDERED: fentaNYL 250 MCG/5 ML INJECTION (J3010) As Ordered ONE (07:23)
[2021-09-28] MEDS ORDERED: propofoL 200 MG/20 ML VIAL As Ordered ONE (07:23)
[2021-09-28] MEDS ORDERED: MIDAZOLAM INJ 2MG/2ML VIAL (J2250 PER 1MG) As Ordered ONE (07:24)
[2021-09-28] MEDS ORDERED: SCOPOLAMINE 1MG TRANSDERMAL PATCH TOP ONE (07:25)
[2021-09-28] MEDS ORDERED: PHENYLephrine 500MCG 5ML (100MCG/ML) SYRINGE As Ordered ONE (08:05)
[2021-09-28] MEDS ORDERED: ACETAMINOPHEN 1000MG 100ML IV BTL (OFIRMEV) (J0131 PER 10MG) As Ordered ONE (08:35)
[2021-09-28] MEDS ORDERED: HYDROmorphone HCL 2 MG/ML 1ML VIAL As Ordered ONE (08:35)
[2021-09-28] MEDS ORDERED: SUGAMMADEX SODIUM 500 MG/5 ML VIAL (BRIDION) As Ordered ONE (08:35)
[2021-09-28] MEDS ORDERED: ONDANSETRON 4MG/2ML VIAL As Ordered ONE (08:44)
[2021-09-28] MEDS ORDERED: SEVOFLURANE INHAL SOLN 250 ML BTL As Ordered ONE (08:48)
[2021-09-28] MEDS ORDERED: ePHEDrine SULFATE 25 MG/5 ML(5MG/ML) SYRINGE As Ordered ONE (09:02)
[2021-09-28] MEDS ORDERED: fentaNYL 100 MCG/2 ML INJECTION (J3010) IV PRN (11:55)
[2021-09-28] MEDS ORDERED: oxyCODONE 5MG TAB PO PRN (11:55)
[2021-09-28] MEDS ORDERED: ONDANSETRON 4MG/2ML VIAL IV PRN ×2 (11:55→12:10)
[2021-09-28] MEDS ORDERED: LR 1,000 ML IV SCH (11:55)
--- NOTE | 2021-09-28 12:05 | ROOPDOC ---
[facility] Report Of Operation Report of Operation DATE OF PROCEDURE: 09/28/21 PREOPERATIVE DIAGNOSIS: Bilateral breast hypertrophy POSTOPERATIVE DIAGNOSIS: same PROCEDURE: Bilateral breast reduction SURGEON: Dr Hicks ANESTHESIA: General ESTIMATED BLOOD LOSS: 75 cc FINDINGS: large breasts SPECIMENS: Right breast 818 gm, Left breast 798 gm COMPLICATIONS: none REPLACED: none DRAINS: 10 mm VAIBHAV x 2 POSTOPERATIVE CONDITION: stable DESCRIPTION OF PROCEDURE: This is a 26-year-old female who upper back and neck pain worsened by large breasts. She is scheduled for bilateral breast reduction. Risks, benefits, and alternatives were discussed with the patient in detail, and she is ready to proceed. The day of surgery, she was marked in the upright position and informed consent was obtained. She measures 28 cm from sternal notch to nipple on the Right and 28 cm on the Left, IMF at 21 cm bilaterally. She was marked according superior medial pedicle breast reduction pattern. She was brought into the operating room and placed in the supine position. Preoperative antibiotics were given. Sequential pneumatic stocking were placed on the lower calves. General anesthesia was induced. She was prepped and draped in the usual sterile fashion. We started our procedure on the right side. Her nipple areolar complex was outlined 42 mm in diameter. We started our incision by scoring the nipple areolar complex area, and then dissection was continued using electrocautery and PEEK cautery until the inferior lateral portion of the breast was resected. Hemostasis was obtained using electrocautery. The pedicle was de-epithelialized using Manrique scissors, good perfusion to the nipple at all times. Wound was irrigated with Gentamicin solution. We used Exparel 6 cc for local anesthesia to infiltrate in the Pectoralis muscle as well as the breast tissue. [place] Tisseel coagulation agent applied, 1 ml. Than, pedicle was turned superior to its new location at 21 cm from sternal notch. The mound was re-created using conforming 0 Vicryl sutures. Pillars were closed with interrupted 3-0 Monocryl sutures and 3-0 Monocryl V-Loc suture. The vertical limb was 8 cm. Excess tissue inferiorly was measured and resected, creating the horizontal scar. Horizontal scar was closed with interrupted 3-0 Monocryl sutures as well as 3-0 Monocryl V-Loc suture. Nipple area complex was brought into view through the new opening and sutured in place with 3-0 and 4-0 Monocryl sutures and a 5-0 plain gut sutures. A 10 mm Mayito-Guallpa drain was placed through the lateral portion of the horizontal incision. and secured in place with 3-0 Monocryl suture. Then we turned our attention to the left side. Her nipple areolar complex was outlined 42 mm in diameter. We started our incision by scoring the nipple areolar complex area, and then dissection was continued using electrocautery and PEEK cautery until the inferior lateral portion of the breast was resected. Hemostasis was obtained using electrocautery. The pedicle was de-epithelialized using Manrique scissors, good perfusion to the nipple at all times. Wound was irrigated with Gentamicin solution. We used Exparel 6 cc for local anesthesia to infiltrate in the Pectoralis muscle as well as the breast tissue. [place] Tisseel coagulation agent applied, 1 ml. Than, pedicle was turned superior to its new location at 21 cm from sternal notch. The mound was re-created using conforming 0 Vicryl sutures. Pillars were closed with interrupted 3-0 Monocryl sutures and 3-0 Monocryl V-Loc suture. The vertical limb was 8 cm. Excess tissue inferiorly was measured and resected, creating the horizontal scar. Horizontal scar was closed with interrupted 3-0 Monocryl sutures as well as 3-0 Monocryl V-Loc suture. Nipple area complex was brought into view through the new opening and sutured in place with 3-0 and 4-0 Monocryl sutures and a 5-0 plain gut sutures. A 10 mm Mayito-Guallpa drain was placed through the lateral portion of the horizontal incision. and secured in place with 3-0 Monocryl suture. Remaining Exparel injected in the horizontal incision. Total Exparel use 20 cc. Resected tissue sent to pathology in two specimens right and left breast tissue. Right breast 818 grams, left breast 798 grams. Dressings were applied to vertical and horizontal incision: Prinio strips and Dermabond. Nipples areolar complex: Xeroform and a bulky dressing with a surgical bra. Patient was extubated in the operating room without difficulty and was transferred to the recovery room in stable condition. . RAYSHAWN HICKS DO Sep 28, 2021 12:05
--- NOTE | 2021-09-28 12:05 | POST-OPPD ---
Postoperative Procedure Note Date Of Procedure: Sep 28, 2021 PREOPERATIVE DIAGNOSIS: Bilateral breast hypertrophy POSTOPERATIVE DIAGNOSIS: same PROCEDURE: Bilateral breast reduction SURGEON: Dr Hicks ANESTHESIA: General ESTIMATED BLOOD LOSS: 75 cc FINDINGS: large breasts SPECIMENS: Right breast 818 gm, Left breast 798 gm COMPLICATIONS: none REPLACED: none DRAINS: 10 mm VAIBHAV x 2 POSTOPERATIVE CONDITION: stable RAYSHAWN HICKS DO Sep 28, 2021 12:05
[2021-09-28] MEDS ORDERED: ACETAMINOPHEN TAB 650MG DOSE (2X325MG) PO PRN (12:10)
[2021-09-28] MEDS ORDERED: traMADol 50 MG TAB PO PRN (12:10)
[2021-09-28] MEDS: LR 1,000 ML IV SCH (13:19)
[2021-09-28] MEDS: PERCOCET 5MG/325MG TAB PO PRN ×2 (17:24→22:37)
[2021-09-29] MEDS: LR 1,000 ML IV SCH (01:30)
[2021-09-29 02:00] VITALS: BP 111/63
[2021-09-29 06:00] VITALS: BP 111/63
[2021-09-29] MEDS: PERCOCET 5MG/325MG TAB PO PRN (06:23)
[2021-09-29] MEDS ORDERED: diphenhydrAMINE 25MG CAP PO ONE (09:00)
--- NOTE | 2021-09-29 10:59 | IPNPDOC ---
Subjective General Date Seen: Sep 29, 2021 Subject Chief Complaint/History The patient is a 26-year-old female admitted with a reason for visit of Bilateral Breast Hypertrophy. Patient status post bilateral breast reduction postop day 1. Doing well today. Pain controlled. She had some itching after taking Percocet. Tolerating regular diet, ambulating to the bathroom without any difficulties. Current Medications Current Medications Current Medications Medications (Trade) Dose Ordered Sig/Bravo Route PRN Reason Start Time Stop Time Status Last Admin Dose Admin Acetaminophen (Tylenol Tab) 650 mg Q6H PRN PO MILD PAIN (PS 1-4) 09/28/21 12:10 09/28/21 18:43 Fentanyl Citrate (Sublimaze) 25 mcg Q5MP PRN IV PAIN LEVEL 8-10 09/28/21 11:55 09/28/21 13:55 DC Lactated Ringer's 1,000 ml @ 75 mls/hr [id number] IV 09/28/21 12:10 09/29/21 01:30 Lactated Ringer's 1,000 ml @ 80 mls/hr [id number] IV 09/28/21 11:55 09/28/21 13:55 DC Lidocaine HCl (LIDOCAINE 1% MDV 20ml) 0.1 ml ONCE PRN SQ DISCOMFORT BEFORE IV START 09/28/21 06:00 09/28/21 11:52 DC Ondansetron HCl (ZOFRAN INJection) 4 mg Q4H PRN IV NAUSEA OR VOMITING 09/28/21 12:10 Ondansetron HCl (ZOFRAN INJection) 4 mg Q4HP PRN IV NAUSEA OR VOMITING 09/28/21 11:55 09/28/21 13:55 DC Oxycodone HCl (Roxicodone, Oxyir) 5 mg ASDIRECTED PRN PO PAIN LEVEL 1-4 09/28/21 11:55 09/28/21 13:55 DC Oxycodone/ Acetaminophen (Percocet 5mg/ 325mg Tablet) 2 tab Q4HP PRN PO PAIN LEVEL 7-10 09/28/21 12:10 09/29/21 06:23 Tramadol HCl (Ultram) 50 mg Q4HP PRN PO PAIN LEVEL 4-7 09/28/21 12:10 09/28/21 15:07 Allergies Coded Allergies: No Known Allergies (Unverified , 09/28/21) Objective Physical Examination Examination GENERAL APPEARANCE:Patient seen, laying in bed, awake, alert, and oriented. Comfortable, in no acute distress. SKIN: Warm and moist. BREAST: Right and left soft, non-tender incisions intact. VAIBHAV drains: 20/20 cc/24 hr. NAC: Viable, warm, symmetrical, mild post-op ecchymosis, no expanding hematoma. HEENT: Normocephalic, atraumatic. [employer] palpebral conjunctiva, anicteric sclerae. Lips and mucosa appear moist. NECK: Supple, no thyromegaly. No obvious jugular venous distention. LUNGS: Clear to auscultation bilaterally. No wheezing appreciated. HEART: No chest wall abnormalities. Regular rate and rhythm with no murmurs appreciated. EXTREMITIES: No edema identified. No calf tenderness. Vital Signs Vital Signs Date Time Temp Pulse Resp B/P (MAP) Pulse Ox O2 Delivery O2 Flow Rate FiO2 09/29/21 09:50 98 Room Air 09/29/21 06:53 18 09/29/21 06:00 98.9 95 111/63 (79) 09/28/21 13:30 1.0 I&Os I&O- Last 24 Hours up to 6 AM 09/29/21 06:00 Intake Total 2760 ml Output Total 2905 ml Balance -145 ml Impression Status post bilateral breast reduction. Stable for discharge. Dressings changed today. Instructions given to the patient. Follow-up with plastic surgery office after discharge. Plan / VTE VTE Prophylaxis Ordered?: Yes RAYSHAWN HICKS DO Sep 29, 2021 10:59
[2021-09-29] MEDS ORDERED: diphenhydrAMINE 12.5MG/5ML ELIXIR UDC PO ONE (11:00)
[2021-09-29] MEDS ORDERED: TRAM50TA2 PO (11:07)
--- OUTSIDE RECORDS SUMMARY | 2021-10-20 14:59 | CCD ---
Continuity of Care Document (CCD) Created on: 10/05/2021 Dalton Chery External Reference #: [id number] : [id number] Sex: Female Author Author Dalton STOCK Organization Unknown Address [address] [place] [address] Phone [phone] Care Team Providers Care Investigator Internal Affairs Name Role Phone Libby Joiner DO AUTM [phone] Problems Active Problems Provider Date Generalized anxiety disorder Talisha Stock FNP Onset: 08/2020 Social History Type Date Description Comments Sex Unknown Tobacco Use Start: Unknown End: Unknown Quit vape d for 3 months ETOH Use Occasionally consumes alcohol Tobacco Use Start: Unknown Patient has never smoked Recreational Drug Use Denies Drug Use Smoking Status Reviewed: 10/05/21 Patient has never smoked Exercise Type/Frequency Does [...] 60tabs F41.1 Talisha Campos ch, FNP 01/20/2020 Tramadol HCL 50mg Tablets take 1 tablet by mouth every 6-8 hours as needed for pain Unknown Immunizations CPT Code Status Date Vaccine Lot # [id number] Given 10/05/2021 Influenza Virus Vaccine, Kiko drivalent,multidose vial [id number] Given 12/17/2020 Moderna Sars-(Co vid-19) vaccine, mRNA, LNP-S, PF, 100 mcg/ 0.5 mL [id number] Given 11/17/2020 Moderna Sars-(Co vid-19) vaccine, mRNA, LNP-S, PF, 100 mcg/ 0.5 mL Vital Signs Date Vital Result Comment 10/05/2021 9:09am BP Systolic 107 mmHg BP Diastolic 71 mmHg Heart Rate 99 /min Body Temperature 96.6 F Respiratory Rate 16 /min Height 67 inches 5'7" Weight 170.25 lb O2 % BldC Oximetry 96 % Peak Expiratory Flow Rate 417 Estimated Peak Flow Rate Last Menstrual Period [id number] [place] Body Weight 135 lb BMI (Body Mass Index) 26.7 kg/m2 03/10/2021 4:50pm BP Systolic 128 mmHg BP Diastolic 89 mmHg Heart Rate 82 /min Body Temperature 97.3 F Respiratory Rate 16 /min Height 67 inches 5'7" Weight 174.00 lb O2 % BldC Oximetry 98 % Peak Expiratory Flow Rate 419 Estimated Peak Flow Rate Last Menstrual Period 1222893 [place] Body Weight 135 lb BMI (Body Mass Index) 27.2 kg/m2 Results Test Acquired Date Facility Test Result H/L Range Note Complete Blood Count 09/28/2021 Patient Service [place] [id number] [phone] White Blood Count 9.2 10 Normal 4.0-10.0 Red Blood Count 4.76 10 Normal 4.00-5.40 Hemoglobin 13.1 g/dL Normal 12.0-15.5 Hematocrit 39.2 % Normal 36.0-47.0 Mean Corpuscular Volume 82.4 fl Normal 80.0-96.0 Mean Corpuscular Hemoglobin 27.5 pg Normal 27.0-33.0 Mean Corpuscular HGB Conc 33.4 g/dL Normal 32.0-36.5 Red Cell Distribution Width 13.5 % Normal 11.5-14.5 Platelet Count, Automated 508 10 High 150-450 Nucleated Red Blood Cell % 0.0 % Normal 0-0 Coronavirus 2019 Nasopharygeal 09/23/2021 [place] [address] [phone] Coronavirus 2019 Nasopharygeal ASSAY INFORMATIO <SEE N OTE> 1 CBC With Differential 06/17/2021 [place] [address] [phone] White Blood Count 8.4 10 Normal 4.0-10.0 [...] 36.0-66.0 Lymph % 34.1 % Normal 24.0-44.0 [place] % 10.1 % High 2.0-8.0 Eos % 1.4 % Normal 0.0-3.0 Baso % 0.6 % Normal 0.0-1.0 Immature Granulocyte % 0.2 % Normal 0-3.0 Nucleated Red Blood Cell % 0.0 % Normal 0-0 Neutrophils # 4.5 10 Normal 1.5-8.5 Lymph # 2.9 10 Normal 1.5-5.0 [place] # 0.9 10 High 0.0-0.8 Eos # 0.1 10 Normal 0.0-0.5 Baso # 0.1 10 Normal 0.0-0.2 Comprehensive Metabolic Profil 06/17/2021 [place] [address] [phone] Glucose, Fasting 84 mg/dL Normal 70-100 Blood [...] 1.2-2.2 Laboratory test finding 06/17/2021 [place] [address] [phone] Hepatitis C Virus Eylena Index 0.1 INDEX Normal <0.8 3 Hepatitis B Surface Antigen NEGATIVE Normal Negative Hepatitis B Surface Antibody NEGATIVE Normal Positive 1 ASSAY INFORMATION: Real Time RT-PCR NOTE: The COVID-19 assay has been cleared by the U.S. Food and Drug Administration under the Emergency Use Authorization (EUA). [facility] are designated as high complexity laboratories by [...] Little GFR Left ESRD GFR <15 on MACHINE HEEL SEAT LASTER 3 Negative Not infected with HCV, unless recent infection is suspected or other evidence exists to indicate HCV infection. Procedures Date Code Description Status 10/05/2021 54374 Preventive Medicine 18-39 Years, Est. Completed Medical Devices Description No Information Available Encounters Type Date Location Provider Dx Diagnosis Office Visit 10/05/2021 9:00a Main Office Talisha Stock FNP Z00.0 0 Encntr for general adult medical exam w/o abnormal findings F41.1 Generalized anxiety disorder Z23 Encounter for immunization Assessments Date Code Description Provider 10/05/2021 Z00.00 Encounter for genera l adult medical examination without abnormal findings Talisha Stock FNP 10/05/2021 F41.1 Generalized anxiety disorder Talisha Martins FNP 10/05/2021 Z23 Encounter for immunization Talisha Shaw FNP Plan of Treatment 10/05/2021 - Talisha Stock FNP* Z00.00 Encounter for general adult medical examination without abnormal findings* Comments:* Health maintenance up to date. Overall doing well. HUBER/PHQ 9/CAGE questionnaire reviewed. Discussed healthy lifestyle choices. * Follow up:* annually * F41.1 Generalized anxiety disorder* Comments:* doing well on sertraline, no concerns today * Z23 Encounter for immunization Functional Status Functional Condition Comment Date Status Glasses Active Independent with all ADL's Activ e Independent with all IADL's Acti ve Soft contacts Active Mental Status Mental Condition Comment Date Status None Active Can Understand Information Activ e Referrals Description No Information Available
--- OUTSIDE RECORDS SUMMARY | 2021-10-20 14:59 | CCD | Continuity of Care Document ---
Author Author Dalton HICKS DO Organization Unknown Address [address] [place] [address] Phone [phone] Care Team Providers Care Certified Athletic Trainer Name Role Phone Hanna Norris MD AUTM [phone] AUTM Unavailable Talisha Stock N.P. AUTM [phone] Mariluz AUTM [phone] Problems Description No Information Available Social History [...] Available Vital Signs Date Vital Result Comment 10/04/2021 11:02am Heart Rate 76 /min Respiratory Rate 14 /min Body Temperature 98.1 F Height 66 inches 5'6" Weight 170.00 lb BMI (Body Mass Index) 27.4 kg/m2 [place] Body Weight 130 lb Weight 77.112 kg BSA (Body Surface Area) 1.87 m2 09/15/2021 4:01pm BP Systolic 122 mmHg BP Diastolic 74 mmHg Heart Rate 80 /min Respiratory Rate 16 /min Body Temperature 97.9 F Height 66 inches 5'6" Weight 173.00 lb BMI (Body Mass Index) 27.9 kg/m2 [place] Body Weight 130 lb Weight 78.473 kg BSA (Body Surface Area) 1.88 m2 Results Test Acquired Date Facility Test Result H/L Range Note Laboratory test finding 09/28/2021 [facility] Main Lab [address] [place] [address] [phone] Pathology Request For Service (SEE NOTE) 1 Complete Blood Count 09/28/2021 [facility] enter Main Lab [address] [place] 6[address]0025 [phone] White Blood Count 9.2 10 Normal 4.0-10.0 [...] Blood Cell % 0.0 % Normal 0-0 1 FINAL DIAGNOSIS A - Breast tissue, right, reduction: Skin and adipocytic breast parenchyma. B - Breast tissue, left, reduction: Skin and adipocytic breast parenchyma. 09/29/2021 - 115 CLINICAL DIAGNOSIS Bilateral breast hypertrophy 09/29/2021 - 0752 GROSS DIAGNOSIS A - Received in formalin labeled "right breast tissue 818 grams" and consists of multiple fragments of morse-white skin and yellow lobulated fibroadipose tissue measuring 24 x 16 x 5 cm. in aggregate. Representatively submitted in one block. B - Received in formalin labeled "left breast tissue 798 grams" and consists of multiple fragments of morse-white skin and yellow lobulated fibroadipose tissue measuring 27 x 16 x 3.5 cm. in aggregate. Representatively submitted in one block. -SV 09/29/2021 - 0752 Signed NERY MAHAN MD 09/29/2021 1156 Procedures Date Code Description Status 09/28/2021 36498 Breast Reduction Completed 05/03/2021 65548 Office/Outpatient New Moderate M DM 45-59 Minutes Completed Medical Devices Description No Information Available Encounters Type Date Location Provider Dx Diagnosis Office Visit 05/03/2021 9:15a [facility] Libby Hicks DO N62 Hypertrophy of breast N64.81 Ptosis of breast Assessments Date Code Description Provider 10/04/2021 N62 Hypertrophy of breast Libby Pale y, DO 09/28/2021 N62 Hypertrophy of breast Libby Pale y, DO 09/15/2021 N62 Hypertrophy of breast Libby Pale y, DO 09/15/2021 N64.81 Ptosis of breast Libby Marisel, DO 09/15/2021 Z01.818 Encounter for other preprocedura l examination Libby Marisel, DO 05/03/2021 N62 Hypertrophy of breast Libby Pale y, DO 05/03/2021 N64.81 Ptosis of breast Libby Marisel, DO Plan of Treatment Future Appointment(s):* 10/27/2021 8:45 am - Libby Hicks DO at [facility] Plastic [facility] Functional Status Description No Information Available Mental Status Description No Information Available Referrals Description No Information Available
--- OUTSIDE RECORDS SUMMARY | 2021-10-20 14:59 | CCD | Continuity of Care Document ---
Author Author Dalton STOCK Organization Unknown Address [address] [place] [address] Phone [phone] Care Team Providers Care Knockout Worker Name Role Phone Libby Joiner DO AUTM [phone] Problems Active Problems Provider Date Generalized anxiety [...] CPT Code Status Date Vaccine Lot # [id number] Given 10/05/2021 Influenza Virus Vaccine, Kiko drivalent,multidose vial [id number] Given 12/17/2020 Moderna Sars-(Co vid-19) vaccine, mRNA, LNP-S, PF, 100 mcg/ 0.5 mL 76083 Given 11/17/2020 Moderna Sars-(Co vid-19) vaccine, mRNA, [...] Estimated Peak Flow Rate Last Menstrual Period 1479117 [place] Body Weight 135 lb BMI (Body Mass Index) 26.7 kg/m2 03/10/2021 4:50pm BP Systolic 128 mmHg BP Diastolic 89 mmHg Heart Rate 82 /min Body Temperature 97.3 F Respiratory Rate 16 /min Height 67 inches 5'7" Weight 174.00 lb O2 % BldC Oximetry 98 % Peak Expiratory Flow Rate 419 Estimated Peak Flow Rate Last Menstrual Period 5390300 [place] Body Weight 135 lb BMI (Body Mass Index) 27.2 kg/m2 Results Test Acquired Date Facility Test Result H/L Range Note Complete Blood Count 09/28/2021 Patient Service [place] [id number] [phone] White Blood Count 9.2 10 Normal 4.0-10.0 [...] 0-0 Coronavirus 2019 Nasopharygeal 09/23/[address] [address] [phone] Coronavirus 2019 Nasopharygeal ASSAY INFORMATIO <SEE N OTE> 1 CBC With Differential 06/17/2021 Patient [place] [address] [phone] White Blood Count 8.4 10 Normal 4.0-10.0 [...] 36.0-66.0 Lymph % 34.1 % Normal 24.0-44.0 [place] % 10.1 % High 2.0-8.0 Eos % 1.4 % Normal 0.0-3.0 Baso % 0.6 % Normal 0.0-1.0 Immature Granulocyte % 0.2 % Normal 0-3.0 Nucleated Red Blood Cell % 0.0 % Normal 0-0 Neutrophils # 4.5 10 Normal 1.5-8.5 Lymph # 2.9 10 Normal 1.5-5.0 [place] # 0.9 10 High 0.0-0.8 Eos # 0.1 10 Normal 0.0-0.5 Baso # 0.1 10 Normal 0.0-0.2 Comprehensive Metabolic Profil 06/17/[address] [address] [phone] Glucose, Fasting 84 mg/dL Normal 70-100 Blood [...] Laboratory test finding 06/17/2021 [facility] [place] [address] [phone] Hepatitis C Virus Yelena Index 0.1 INDEX Normal <0.8 3 Hepatitis B Surface Antigen NEGATIVE Normal Negative Hepatitis B Surface Antibody NEGATIVE Normal Positive 1 ASSAY INFORMATION: Real Time RT-PCR NOTE: The COVID-19 assay has been cleared by the U.S. Food and Drug Administration under the Emergency Use Authorization (EUA). [facility] are designated as high complexity laboratories by [...] Little GFR Left ESRD GFR <15 on ASSEMBLER PING PONG TABLE 3 Negative Not infected with HCV, unless recent infection is suspected or other evidence exists to indicate HCV infection. Procedures Description No Information Available Medical Devices Description No Information Available Encounters Description No Information Available Assessments Date Code Description Provider 10/05/2021 Z00.00 Encounter for genera l adult medical examination without abnormal findings Talisha Stock FNP 10/05/2021 F41.1 Generalized anxiety disorder Talisha Martins FNP Plan of Treatment 10/05/2021 - Talisha Stock FNP* Z00.00 Encounter for general adult medical examination without abnormal findings* Follow up:* annually * F41.1 Generalized anxiety disorder Functional Status Functional Condition Comment Date Status Glasses Active Independent with all ADL's Activ e Independent with all IADL's Acti ve Soft contacts Active Mental Status Mental Condition Comment Date Status None Active Can Understand Information Activ e Referrals Description No Information Available
--- OUTSIDE RECORDS SUMMARY | 2021-10-20 14:59 | CCD | Continuity of Care Document ---
Author Author Dalton HICKS DO Organization Unknown Address [address] [place] [address] Phone [phone] Care Team Providers Care Criminalist Name Role Phone Hanna Norris MD AUTM [phone] AUTM Unavailable Talisha Stock N.P. AUTM [phone] Mariluz AUTM [phone] Problems Description No Information Available Social History [...] lb BMI (Body Mass Index) 27.4 kg/m2 Snyder Body Weight 130 lb Weight 77.112 kg BSA (Body Surface Area) 1.87 m2 09/15/2021 4:01pm BP Systolic 122 mmHg BP Diastolic 74 mmHg Heart Rate 80 /min Respiratory Rate 16 /min Body Temperature 97.9 F Height 66 inches 5'6" Weight 173.00 lb BMI (Body Mass Index) 27.9 kg/m2 Snyder Body Weight 130 lb Weight 78.473 kg BSA (Body Surface Area) 1.88 m2 Results Test Acquired Date Facility Test Result H/L Range Note Laboratory test finding 09/28/2021 [facility] [address] [place] [address] [phone] Pathology Request For Service (SEE NOTE) 1 Complete Blood Count 09/28/2021 [facility] enter Main Lab [address] [place] [id number] [phone] White Blood Count 9.2 10 Normal 4.0-10.0 [...] CLINICAL DIAGNOSIS Bilateral breast hypertrophy 09/29/2021 - 751 GROSS DIAGNOSIS A - Received in formalin [...] 1156 Procedures Date Code Description Status 09/28/2021 44010 Breast Reduction Completed 05/03/2021 52118 Office/Outpatient New Moderate M DM 45-59 Minutes Completed Medical Devices Description No Information Available Encounters Type Date Location Provider Dx Diagnosis Office Visit 10/04/2021 10:15a [facility] Plastic Surgery Libby Hicks DO Z48.89 Encounter for other specified surgical aftercare Z48.03 Encounter for change or dilip [place] of drains Office Visit 05/03/2021 9:15a [facility] Plastic Surgery Libby Marisel, DO N62 Hypertrophy of breast N64.81 Ptosis of breast Assessments Date Code Description Provider 10/04/2021 Z48.89 Encounter for other specified olivia rgical aftercare Libby Hicks, DO 10/04/2021 Z48.03 Encounter for change or removal of drains Libby Hicks, DO 09/28/2021 N62 Hypertrophy of breast Libby Pale y, DO 09/15/2021 N62 Hypertrophy of breast Libby Pale y, DO 09/15/2021 N64.81 Ptosis of breast Libby Marisel, DO 09/15/2021 Z01.818 Encounter for other preprocedura l examination Libby Hicks, DO 05/03/2021 N62 Hypertrophy of breast Libby Pale y, DO 05/03/2021 N64.81 Ptosis of breast Libby Marisel, DO Plan of Treatment Future Appointment(s):* 10/27/2021 8:45 am - Libby Hicks DO at [facility] Plastic Surgery Functional Status Description No Information Available Mental Status Description No Information Available Referrals Description No Information Available
--- OUTSIDE RECORDS SUMMARY | 2021-10-20 15:00 | CCD ---
Author Author [facility] Organization [facility] Address Unknown Phone Unavailable Care Team Providers Care [employer] Name Role Phone Pleskach, Talisha STRAPPER OPERATOR Unavailable Unavailable Pleskach, Talisha STRAPPER OPERATOR Unavailable Unavailable Pleskach, Talisha STRAPPER OPERATOR Unavailable Unavailable Pleskach, Talisha STRAPPER OPERATOR Unavailable Unavailable Pleskach, Talisha STRAPPER OPERATOR Unavailable Unavailable Pleskach, Talisha STRAPPER OPERATOR Unavailable Unavailable Pleskach, Talisha STRAPPER OPERATOR Unavailable Unavailable Pleskach, Talisha STRAPPER OPERATOR Unavailable Unavailable Pleskach, Talisha STRAPPER OPERATOR Unavailable Unavailable Pleskach, Talisha STRAPPER OPERATOR Unavailable Unavailable Pleskach, Talisha STRAPPER OPERATOR Unavailable Unavailable Pleskach, Talisha STRAPPER OPERATOR Unavailable Unavailable Pleskach, Talisha STRAPPER OPERATOR Unavailable Unavailable Pleskach, Talisha STRAPPER OPERATOR Unavailable Unavailable Pleskach, Talisha STRAPPER OPERATOR Unavailable Unavailable Pleskach, Talisha STRAPPER OPERATOR Unavailable Unavailable Pleskach, Talisha STRAPPER OPERATOR Unavailable Unavailable Pleskach, Talisha STRAPPER OPERATOR Unavailable Unavailable Pleskach, Talisha STRAPPER OPERATOR Unavailable Unavailable Pleskach, Talisha STRAPPER OPERATOR Unavailable Unavailable Pleskach, Talisha STRAPPER OPERATOR Unavailable Unavailable Pleskach, Talisha STRAPPER OPERATOR Unavailable Unavailable Pleskach, Talisha STRAPPER OPERATOR Unavailable Unavailable Pleskach, Talisha STRAPPER OPERATOR Unavailable Unavailable Pleskach, Talisha STRAPPER OPERATOR Unavailable Unavailable Pleskach, Talisha STRAPPER OPERATOR Unavailable Unavailable Pleskach, Talisha STRAPPER OPERATOR Unavailable Unavailable Pleskach, Talisha STRAPPER OPERATOR Unavailable Unavailable Pleskach, Talisha STRAPPER OPERATOR Unavailable Unavailable Pleskach, Talisha STRAPPER OPERATOR Unavailable Unavailable Pleskach, Talisha STRAPPER OPERATOR Unavailable Unavailable Pleskach, Talisha STRAPPER OPERATOR Unavailable Unavailable Pleskach, Talisha STRAPPER OPERATOR Unavailable Unavailable Pleskach, Talisha STRAPPER OPERATOR Unavailable Unavailable Pleskach, Talisha STRAPPER OPERATOR Unavailable Unavailable Pleskach, Talisha STRAPPER OPERATOR Unavailable Unavailable Pleskach, Talisha STRAPPER OPERATOR Unavailable Unavailable Pleskach, Talisha STRAPPER OPERATOR Unavailable Unavailable Pleskach, Talisha STRAPPER OPERATOR Unavailable Unavailable Pleskach, Talisha STRAPPER OPERATOR Unavailable Unavailable Pleskach, Talisha STRAPPER OPERATOR Unavailable Unavailable Pleskach, Talisha STRAPPER OPERATOR Unavailable Unavailable Pleskach, Talisha STRAPPER OPERATOR Unavailable Unavailable Pleskach, Talisha STRAPPER OPERATOR Unavailable Unavailable FABIOLA, E RAYSHAWN DO Unavailable [...] is protected by Article 27-F of the [facility] Public Health law. If you continue you may have access to information: Regarding HIV / AIDS; Provided by facilities licensed or operated by the [facility] Office of Mental Health; or Provided by the [facility] Office for People With Developmental Disabilities. If such information is present, then the following [facility] mandated warning applies: This information has been [...] law may result in a fine or half-way sentence or both. A general authorization for the release of medical or other information is NOT sufficient authorization for further disc losure. Encounters Encounter Providers Location Date Indications Data Source(s ) Outpatient Attender: Talisha Stock [facility] Main Office 10/05/2021 0 8:00:00 AM EST [facility] ([facility] Office Visit Attender: RAYSHAWN Lance[place] 10/04/2021 09:15:00 AM EST [facility] ([facility] Outpatient Attender: RAYSHAWN [place] 05/03/2021 09:15:00 AM EDT [facility] ([facility] Outpatient Attender: Talisha Stock [facility] Main Office 03/10/2021 0 4:45:00 PM EDT [facility] ([facility] Outpatient Attender: Talisha Stock [facility] Main Office 10/08/2020 0 7:30:00 AM EST [facility] ([facility] Outpatient Attender: LALITO ARTHUR eferrer: LALITO ATKINSON MDConsultant: SPECIFIED NOT 09/07/2020 12:55:00 PM EDT - 09/07/2020 01:05:00 PM EDT [facility] Immunizations Vaccine Date Status Description Data Source(s) New in 2012. IIV4 10/05/2021 08:32:00 AM EST completed [facility] ([facility] COVID-19 VACCINE Moderna 12/17/2020 12:00:00 AM EST completed [facility] Vaccine Series Complete: YESThis Data wa s Submitted to [facility] Via [employer]. Moderna Sars-(Covid-19) vaccine, mRNA, LNP-S, PF, 100 mcg/ 0.5 mL 12/16/2020 11:00:00 PM EST completed [facility] COVID-19 VACCINE Moderna 11/17/2020 12:00:00 AM EST completed [facility] Vaccine Series Complete: NOThis Data was Submitted to [facility] Via [employer]. Moderna Sars-(Covid-19) vaccine, mRNA, LNP-S, PF, 100 [...] type / Coverage type Policy ID Covered libertarian ID Covered libertarian's relationship to tabares Policy Tabares Plan Information [facility] TRANSITION MANAGER SCREENING [id number] Patient [id number] [facility] SP EXCELLUS BC-BS PPO [id number] MO2 [id number] EXCELLUS BC-BS PPO [id number] SP [id number] SELF PAY ONLY [id number] SP [id number] SELF PAY [facility] [id number] SP [id number] [facility] MED[facility]ID HMO -O/P [id number] 19 [id number] [facility] MEDICAID HMO -O/P [id number] 19 [id number] [facility] MEDICAID HMO -O/P [id number] 18 [id number] BLUE CROSS BLUE SHIELD-O/P [id number] ANSI-Not a Secondary Insurance [id number] ANSI-Not a Secondary Insurance [id number] [facility] [id number] SP [id number] ANSI-Not a Secondary Insurance [id number] ANSI-Not a Secondary Insurance [id number] ANSI-Not a Secondary Insurance [id number] ANSI-Not a Secondary Insurance [id number] ANSI-Not a Secondary Insurance [id number] ANSI-Not a Secondary Insurance [id number] ANSI-Not a Secondary Insurance [id number] ANSI-Not a Secondary Insurance [id number] ANSI-Not a Secondary Insurance [id number] ANSI-Not a Secondary Insurance [id number] [facility] O [id number] S 80 [id number] BCBS [place] PPO [id number] MO2 [id number] Problems, Conditions, and Diagnoses Code Display Name Description Problem Type Effective Dates Data Source(s) Z1159 Encounter for screening for other viral diseases Encounter for screening for other viral diseases Diagnosis 09/07/2020 12:55:00 PM EDT [facility] Surgeries/Procedures Procedure Description Date Indications Data Source(s) PERIODIC PREVENTIVE MED EST PATIENT 18-39 YRS 10/05/20 12:00:00 AM EST [facility] ([facility] REDUCTION MAMMAPLASTY 09/28/2021 12:00:00 AM EST [facility] ([facility]) OFFICE OUTPATIENT NEW 45 MINUTES 05/03/2021 12:00:00 A M EDT [facility] ([facility]) OFFICE OUTPATIENT VISIT 15 MINUTES 03/10/2021 12:00:00 AM EDT [facility] ([facility] Results ID Date Data Source [id number] 09/28/2021 11:23:00 AM EST [facility] ([facility]) Name Value Range Interpretation Code Description Data Sophie rce(s) Supporting Document(s) Surgical pathology study Laboratory test result [facility] ([facility]) FINAL DIAGNOSIS A - Breast tissue, right, reduction: Skin and adipocytic breast parenchyma. B - Breast tissue, left, reduction: Skin and adipocytic breast parenchyma. 09/29/20211155 CLINICAL DIAGNOSIS Bilateral breast hypertrophy 09/29/2021751 GROSS DIAGNOSIS A - Received in formalin [...] aggregate. Representatively submitted in one block. -SV 09/29/2021751 Signed NERY MAHAN MD 09/29/20211155 ID Date Data Source [id number] 09/28/2021 06:40:00 AM EST [facility] ([facility]) Name Value Range Interpretation Code Description Data Sophie rce(s) Supporting Document(s) White Blood Count 9.2 10 4.0-10.0 Normal (applies to non-numeri c results) [facility] ([facility]) Hemoglobin 13.1 g/dL 12.0-15.5 Normal (applies to non-numeric resul ts) [facility] Red Blood Count 4.76 10 4.00-5.40 Normal (applies to non-numeric results) [facility] Hematocrit 39.2 % 36.0-47.0 Normal (applies to non-numeric resul ts) [facility] Mean Corpuscular Volume 82.4 fl 80.0-96.0 Normal ( applies to non-numeric results) [facility] ([facility]) Mean Corpuscular HGB Conc 33.4 g/dL 32.0-36.5 Normal (applies to non-numeric results) [facility] ([facility]) Mean Corpuscular Hemoglobin 27.5 pg 27.0-33.0 Norm al (applies to non-numeric results) [facility] ([facility]) Red Cell Distribution Width 13.5 % 11.5-14.5 Norm al (applies to non-numeric results) [facility] ([facility]) Platelet Count, Automated 508 10 150-450 Above high normal [facility] ([facility]) Nucleated Red Blood Cell % 0.0 % 0-0 Normal (applies to n on-numeric results) [facility] ([facility]) ID Date Data Source [id number] 09/28/2021 06:40:00 AM EST [facility] ([facility] Name Value Range Interpretation Code Description Data Sophie rce(s) Supporting Document(s) White Blood Count 9.2 10 4.0-10.0 [facility] ([facility] Red Blood Count 4.76 10 4.00-5.40 [facility] ([facility] Hemoglobin 13.1 g/dL 12.0-15.5 [facility] Hematocrit 39.2 % 36.0-47.0 [facility] Mean Corpuscular Volume 82.4 fl 80.0-96.0 M [facility] ([facility] Mean Corpuscular Hemoglobin 27.5 pg 27.0-33.0 [facility] ([facility] Mean Corpuscular HGB Conc 33.4 g/dL 32.0-36.5 [facility] ([facility] Red Cell Distribution Width 13.5 % 11.5-14.5 [facility] ([facility] Nucleated Red Blood Cell % 0.0 % 0-0 [facility] ([facility] Platelet Count, Automated 508 10 150-450 [facility] ([facility] ID Date Data Source [id number] 09/23/2021 10:15:00 AM EDT [facility] ([facility] Name Value Range Interpretation Code Description Data Sophie rce(s) Supporting Document(s) Coronavirus 2019 Nasopharygeal Laboratory test result [facility] ([facility] ASSAY INFORMATION: Real Time RT-PCR NOTE: The COVID-19 assay has been cleared by the U.S. Food and Drug Administration under the Emergency Use Authorization (EUA). [employer] and [employer] are designated as high complexity laboratories by the Clinical Laboratory Improvement Amendments of 1988(CLIA) and are qualified to perform this test. Not Detected ID Date Data Source [id number] 09/23/2021 10:15:00 AM EDT [facility] Name Value Range Interpretation Code Description Data Sophie rce(s) Supporting Document(s) SARS-CoV-2 (COVID-19) RNA [Presence] in Respiratory specimen by CARMELITA with probe detection Not Detected [facility] This lab was ordered by [facility] and reported by [employer]. ID Date Data Source [id number] 06/17/2021 05:26:00 PM EDT [facility] ([facility] Name Value Range Interpretation Code Description Data Sophie rce(s) Supporting Document(s) Glucose, Fasting 84 mg/dL 70-100 [facility] ([facility] Blood Urea Nitrogen 9 mg/dL 7-18 [facility] ([facility] Creatinine For GFR 0.84 [...] Little GFR Left</content>
<content>ESRD GFR <15 on SECURITY SYSTEMS ENGINEER</content>
<content></content> Potassium Serum 4.4 meq/L 3.5-5.1 [facility] ([facility] Sodium Level 138 meq/L 136-145 [facility] ([facility] Chloride Level 106 meq/L 98-107 [facility] ([facility] Carbon Dioxide Level 29 meq/L 21-32 [facility] ([facility] Anion Gap 3 meq/L 8-16 [facility] Ast/Sgot 22 U/L 7-37 [facility] Calcium Level 9.1 mg/dL 8.5-10.1 [facility] ([facility] Alt/SGPT 32 U/L 12-78 [facility] Alkaline Phosphatase 79 U/L 45-117 [facility] ([facility] Bilirubin,Total 0.2 mg/dL 0.2-1.0 [facility] ([facility] Albumin 3.8 GM/DL 3.2-5.2 [facility] Total Protein 7.4 GM/DL 6.4-8.2 [facility] ([facility] Albumin/Globulin Ratio 1.1 1.2-2.2 [facility] ([facility] ID Date Data Source [id number] 06/17/2021 05:26:00 PM EDT [facility] ([facility] Name Value Range Interpretation Code Description Data Sophie rce(s) Supporting Document(s) White Blood Count 8.4 10 4.0-10.0 [facility] ([facility] Red Blood Count 4.31 10 4.00-5.40 [facility] ([facility] Hemoglobin 12.1 g/dL 12.0-15.5 [facility] Hematocrit 36.7 % 36.0-47.0 [facility] Mean Corpuscular Volume 85.2 fl 80.0-96.0 M [facility] ([facility] Mean Corpuscular Hemoglobin 28.1 pg 27.0-33.0 [facility] ([facility] Mean Corpuscular HGB Conc 33.0 g/dL 32.0-36.5 [facility] ([facility] Red Cell Distribution Width 11.7 % 11.5-14.5 [facility] ([facility] Platelet Count, Automated 409 10 150-450 [facility] ([facility] Neutrophils % 53.6 % 36.0-66.0 [facility] ([facility] [place] % 10.1 % 2.0-8.0 [facility] Lymph % 34.1 % 24.0-44.0 [facility] Eos % 1.4 % 0.0-3.0 [facility] Baso % 0.6 % 0.0-1.0 [facility] Immature Granulocyte % 0.2 % 0-3.0 [facility] ([facility] Nucleated Red Blood Cell % 0.0 % 0-0 [facility] ([facility] Neutrophils # 4.5 10 1.5-8.5 [facility] ([facility] Lymph # 2.9 10 1.5-5.0 [facility] [place] # 0.9 10 0.0-0.8 [facility] Eos # 0.1 10 0.0-0.5 [facility] Baso # 0.1 10 0.0-0.2 [facility] ID Date Data Source [id number] 06/17/2021 05:26:00 PM EDT [facility] ([facility] Name Value Range Interpretation Code Description Data Sophie rce(s) Supporting Document(s) Hepatitis C virus Ab [Units/volume] [...] virus surface Ab [Presence] in Serum by Im munoassay Laboratory test result [facility] ([facility] ID Date Data Source [id number] 11/27/2020 11:00:00 AM EST [facility] Name Value Range Interpretation Code Description Data Sophie rce(s) Supporting Document(s) SARS coronavirus 2 RNA Detected [facility] This lab was ordered by [facility] and reported by [facility]. ID Date Data Source [id number] 11/03/2020 02:16:00 PM EST [facility] Name Value Range Interpretation Code Description Data Sophie rce(s) Supporting Document(s) SARS coronavirus 2 RNA [facility] This lab was ordered by [facility] and reported by [facility]. ID Date Data Source [id number] 10/27/2020 10:00:00 AM EST [facility] Name Value Range Interpretation Code Description Data Sophie rce(s) Supporting Document(s) SARS coronavirus 2 RNA [facility] This lab was ordered by [facility] and reported by [facility]. ID Date Data Source [id number] 10/20/2020 01:40:00 PM EST [facility] Name Value Range Interpretation Code Description Data Sophie rce(s) Supporting Document(s) SARS coronavirus 2 RNA [facility] This lab was ordered by [facility] and reported by [facility]. ID Date Data Source [id number] 10/13/2020 09:00:00 AM EST [facility] Name Value Range Interpretation Code Description Data Sophie rce(s) Supporting Document(s) SARS coronavirus 2 RNA [facility] This lab was ordered by [facility] and reported by [facility]. ID Date Data Source [id number] 10/06/2020 10:00:00 AM EST [facility] Name Value Range Interpretation Code Description Data Sophie rce(s) Supporting Document(s) SARS coronavirus 2 RNA [facility] This lab was ordered by [facility] and reported by [facility]. ID Date Data Source [id number] 09/23/2020 12:00:00 AM EST [facility] Name Value Range Interpretation Code Description Data Sophie rce(s) Supporting Document(s) 2019-nCoV RNA XXX CARMELITA+probe-Imp [facility] This lab was ordered by [facility] and reported by [employer] ID Date Data Source [id number] 09/23/2020 12:00:00 AM EST [facility] Name Value Range Interpretation Code Description Data Sophie rce(s) Supporting Document(s) SARS-CoV2 Rapid Antigen [facility] This lab was ordered by [facility] and reported by [facility]. ID Date Data Source [id number] 09/07/2020 07:00:00 AM EDT [facility] Name Value Range Interpretation Code Description Data Sophie rce(s) Supporting Document(s) SARS coronavirus 2 RNA [facility] This lab was ordered by [facility] and reported by [facility]. ID Date Data Source [id number] 09/08/2020 07:07:00 PM EDT [facility] Name Value Range Interpretation Code Description Data Sophie rce(s) Supporting Document(s) SARS-CoV-2, CARMELITA Not Detected Not Detected [facility] This nucleic acid amplification test was developed and its performancecharacteristics determined by [facility]. Nucleic acidamplification tests include PCR and [...] Value Status Description Data Source(s ) Smoking 10/05/2021 12:00:00 AM EST Patient has never smoked co mpleted Patient has never smoked [facility] Vital Signs ID Date Data Source [id number] Name Value Range Interpretation Code Description Data Source(s) Systolic blood pressure 107 mm[Hg] 107 mm[Hg] M [facility] ([facility] Diastolic blood pressure 71 mm[Hg] 71 mm[Hg] [facility] ([facility] Heart rate 99 /min 99 /min [facility] ([facility] Body temperature 96.6 [degF] 96.6 [degF] [facility] ([facility] Respiratory rate 16 /min 16 /min [facility] ( [facility] Body height 67 [in_i] 67 [in_i] [facility] ([facility] 5'7" Body weight 170.25 [lb_av] 170.25 [lb_av] [facility] ([facility] Oxygen saturation in Arterial blood by Pulse oximetry 96 % 96 % [facility] ([facility] [place] body weight 135 [lb_av] 135 [lb_av] [facility] ([facility] Body mass index (BMI) [Ratio] 26.7 kg/m2 26.7 k g/m2 [facility] ([facility] Heart rate 76 /min 76 /min [facility] ([facility]) Body height 66 [in_i] 66 [in_i] [facility] ([facility]) 5'6" Body mass index (BMI) [Ratio] 27.4 kg/m2 27.4 k g/m2 [facility] ([facility]) Body weight 170.00 [lb_av] 170.00 [lb_av] [facility] T ([facility]) Body surface area Derived from formula 1.87 m2 1.87 m2 [facility] [place] body weight 130 [lb_av] 130 [lb_av] [facility] ([facility]) Respiratory rate 14 /min 14 /min [facility] ( [facility]) Body temperature 98.1 [degF] 98.1 [degF] [facility] ([facility]) Body weight 77.112 kg 77.112 kg [facility] ([facility]) Heart rate 80 /min 80 /min [facility] Body surface area Derived from formula 1.88 m2 1.88 m2 [facility] Body temperature 97.9 [degF] 97.9 [degF] [facility] ([facility]) Body height 66 [in_i] 66 [in_i] [facility] ([facility]) 5'6" Systolic blood pressure 122 mm[Hg] 122 mm[Hg] M [facility] ([facility]) Diastolic blood pressure 74 mm[Hg] 74 mm[Hg] [facility] ([facility]) Respiratory rate 16 /min 16 /min [facility] ( [facility]) Body weight 173.00 [lb_av] 173.00 [lb_av] [facility] T ([facility]) Body mass index (BMI) [Ratio] 27.9 kg/m2 27.9 k g/m2 [facility] [place] body weight 130 [lb_av] 130 [lb_av] [facility] ([facility]) Body weight 78.473 kg 78.473 kg [facility] Systolic blood pressure 128 mm[Hg] 128 mm[Hg] [facility] ([facility]) Diastolic blood pressure 84 mm[Hg] 84 mm[Hg] [facility] ([facility]) Heart rate 76 /min 76 /min [facility] ([facility]) Body mass index (BMI) [Ratio] 28.1 kg/m2 28.1 k g/m2 [facility] ([facility]) Body weight 174.00 [lb_av] 174.00 [lb_av] [facility] T ([facility]) Body temperature 98.4 [degF] 98.4 [degF] [facility] ([facility]) Body height 66 [in_i] 66 [in_i] [facility] ([facility]) 5'6" [place] body weight 130 [lb_av] 130 [lb_av] [facility] T ([facility]) Body surface area Derived from formula 1.88 m2 1.88 m2 [facility] ([facility]) Body weight 78.926 kg 78.926 kg [facility] ([facility]) Respiratory rate 16 /min 16 /min [facility] ( [facility]) Respiratory rate 16 /min 16 /min [facility] ( [facility]) Body temperature 98.4 [degF] 98.4 [degF] [facility] ([facility]) Body height 66 [in_i] 66 [in_i] [facility] ([facility]) 5'6" Body weight 174.00 [lb_av] 174.00 [lb_av] [facility] T ([facility]) Body mass index (BMI) [Ratio] 28.1 kg/m2 28.1 k g/m2 [facility] ([facility]) [place] body weight 130 [lb_av] 130 [lb_av] [facility] ([facility]) Body weight 78.926 kg 78.926 kg [facility] ([facility]) Body surface area Derived from formula 1.88 m2 1.88 m2 [facility] ([facility]) Heart rate 82 /min 82 /min [facility] ([facility] Systolic blood pressure 128 mm[Hg] 128 mm[Hg] M [facility] ([facility] Body temperature 97.3 [degF] 97.3 [degF] [facility] ([facility] Respiratory rate 16 /min 16 /min [facility] ( [facility] Body height 67 [in_i] 67 [in_i] [facility] ([facility] 5'7" Diastolic blood pressure 89 mm[Hg] 89 mm[Hg] [facility] ([facility] Body weight 174.00 [lb_av] 174.00 [lb_av] [facility] ([facility] Oxygen saturation in Arterial blood by Pulse oximetry 98 % 98 % [facility] ([facility] [place] body weight 135 [lb_av] 135 [lb_av] [facility] ([facility] Body mass index (BMI) [Ratio] 27.2 kg/m2 27.2 k g/m2 [facility] ([facility] Systolic blood pressure 115 mm[Hg] 115 mm[Hg] M [facility] ([facility] Diastolic blood pressure 70 mm[Hg] 70 mm[Hg] [facility] Heart rate 99 /min 99 /min [facility] ([facility] Body weight 164.12 [lb_av] 164.12 [lb_av] [facility] ([facility] Body mass index (BMI) [Ratio] 25.7 kg/m2 25.7 k g/m2 [facility] ([facility] [place] body weight 135 [lb_av] 135 [lb_av] [facility] ([facility] Body temperature 96.8 [degF] 96.8 [degF] [facility] Respiratory rate 17 /min 17 /min [facility] ( [facility] Body height 67 [in_i] 67 [in_i] [facility] ([facility] 5'7" Oxygen saturation in Arterial blood by Pulse oximetry 99 % 99 % [facility] ([facility]
== END 2021-09-29 13:00 | disposition home or self-care (01) ==
LOC: M SDC 06:05 → M MS5PR 12:10 → M SDC 09-29 13:00 → M MS5PR 09-29 13:00 → UNDOADMOB 09-29 13:00 → UNDODISOB 09-29 13:00
PROVIDERS: ADMIT Plastic Surgery Surgery of the Hand; ATTEND Plastic Surgery Surgery of the Hand
DX: N62 Hypertrophy of breast (principal); N64.81 Ptosis of breast; F41.9 Anxiety disorder, unspecified; Z86.14 Personal history of Methicillin resistant Staphylococcus aureus infection; Z79.899 Other long term (current) drug therapy
CPT/HCPCS: 19318; 36415; 81025; 85027; 88305; C9290; G0378; J0131; J0690; J1100; J1170; J1580; J2250; J2370; J2405; J3010

== ENCOUNTER → 2021-11-08 | Outpatient (REF) ==
[~2021-11-08] MED LIST changes: -LIDOCAINE 1% MDV 20ML VIAL SQ PRN; -LR 1,000 ML IV ONE; +TRAM50TA2 PO; -ceFAZolin SOD 2 GM in IV 1 EA IV ONE
== END ==
LOC: M LABSMTC 10:47
PROVIDERS: ATTEND Family Medicine
DX: Z11.52 Encounter for screening for COVID-19 (principal); Z20.822 Contact with and (suspected) exposure to COVID-19

== ENCOUNTER → 2022-09-27 | Outpatient (REF) ==
[2022-09-27 14:02] LABS: RSV AMPLIFICATION NEGATIVE (NEGATIVE)
== END ==
LOC: M LABSMTC 10:17
PROVIDERS: ATTEND Family Medicine
DX: Z20.822 Contact with and (suspected) exposure to COVID-19 (principal)

== ENCOUNTER → 2022-10-02 | Outpatient (REF) | LOC: M LABSMTC 11:03 | PROVIDERS: ATTEND Family Medicine | DX: Z11.52 Encounter for screening for COVID-19 (principal) ==

== ENCOUNTER → 2022-12-20 | Outpatient (REF) | payer BC | LOC: M LAB REF 16:57 | PROVIDERS: ATTEND Nurse Practitioner Family | DX: Z01.411 Encounter for gynecological examination (general) (routine) with abnormal findings (principal); R87.615 Unsatisfactory cytologic smear of cervix | CPT/HCPCS: 87624; G0123 ==

== ENCOUNTER → 2023-01-26 | Outpatient (REF) | payer BC | LOC: M LAB REF 15:29 | PROVIDERS: ATTEND Nurse Practitioner Family | DX: R30.0 Dysuria (principal) ==

== ENCOUNTER → 2024-05-17 | Outpatient (REF) | payer BC | LOC: M PLALAB 14:35 | PROVIDERS: ATTEND Advanced Practice Midwife | DX: Z53.9 Procedure and treatment not carried out, unspecified reason (principal); Z34.01 Encounter for supervision of normal first pregnancy, first trimester ==

== ENCOUNTER → 2024-05-22 | Outpatient (CLI) | payer BC ==
[2024-05-22 17:33] LABS: HEMATOCRIT 37.1 % (36.0-47.0); HEMOGLOBIN 12.9 g/dl (12.0-15.5); MEAN CORPUSCULAR HEMOGLOBIN 30.1 pg (27.0-33.0); MEAN CORPUSCULAR HGB CONC 34.8 g/dl (32.0-36.5); MEAN CORPUSCULAR VOLUME 86.7 fl (80.0-96.0); PLATELET COUNT, AUTOMATED 403 10^3/uL (150-450); RED BLOOD COUNT 4.28 10^6/uL (4.00-5.40); WHITE BLOOD COUNT 8.9 10^3/uL (4.0-10.0)
[2024-05-22 18:15] LABS: HIV 1&2 SCREEN NEGATIVE (NEGATIVE)
[2024-05-22 18:23] LABS: HEPATITIS C VIRUS ABY INDEX < 0.02 INDEX (<0.8)
[2024-05-22 18:54] LABS: GC DNA AMPLIFICATION NEGATIVE (NEGATIVE)
== END ==
LOC: M PLALAB 15:39
PROVIDERS: ATTEND Advanced Practice Midwife
DX: Z34.01 Encounter for supervision of normal first pregnancy, first trimester (principal)

== ENCOUNTER → 2024-07-19 | Outpatient (CLI) | payer BC | LOC: M WHC 14:30 | PROVIDERS: ATTEND Advanced Practice Midwife | DX: O44.42 Low lying placenta NOS or without hemorrhage, second trimester (principal); Z3A.19 19 weeks gestation of pregnancy ==

== ENCOUNTER → 2024-09-13 | Outpatient (CLI) | payer BC ==
[2024-09-13 11:44] LABS: HEMATOCRIT 36.9 % (36.0-47.0); HEMOGLOBIN 12.4 g/dl (12.0-15.5); MEAN CORPUSCULAR HEMOGLOBIN 31.1 pg (27.0-33.0); MEAN CORPUSCULAR HGB CONC 33.6 g/dl (32.0-36.5); MEAN CORPUSCULAR VOLUME 92.5 fl (80.0-96.0); PLATELET COUNT, AUTOMATED 374 10^3/uL (150-450); RED BLOOD COUNT 3.99 10^6/uL (4.00-5.40); WHITE BLOOD COUNT 10.4 10^3/uL (4.0-10.0)
[2024-09-13 12:05] LABS: GLUCOSE CHALLENGE TEST 1 HOUR 77 MG/DL (LESS THAN 140)
[2024-09-13 12:33] LABS: HIV 1&2 SCREEN NEGATIVE (NEGATIVE)
[2024-09-13 12:41] LABS: HEPATITIS C VIRUS ABY INDEX < 0.02 INDEX (<0.8)
[2024-09-13 16:07] LABS: GC DNA AMPLIFICATION NEGATIVE (NEGATIVE)
== END ==
LOC: M PLALAB 07:55
PROVIDERS: ATTEND Obstetrics & Gynecology
DX: Z34.82 Encounter for supervision of other normal pregnancy, second trimester (principal)

== ENCOUNTER → 2024-09-16 | Outpatient (CLI) | payer BC | LOC: M WHC 13:46 | PROVIDERS: ATTEND Obstetrics & Gynecology | DX: Z34.82 Encounter for supervision of other normal pregnancy, second trimester (principal); Z36.2 Encounter for other antenatal screening follow-up; Z3A.00 Weeks of gestation of pregnancy not specified ==

== ENCOUNTER → 2024-11-04 | Outpatient (CLI) | payer BC ==
[~2024-11-04] MED LIST changes: +ACET-907 PO; +FAMO20TA PO; +SERT-141 PO
[2024-11-04 15:04] LABS: HEMATOCRIT 34.3 % (36.0-47.0); HEMOGLOBIN 11.6 g/dl (12.0-15.5); MEAN CORPUSCULAR HEMOGLOBIN 29.8 pg (27.0-33.0); MEAN CORPUSCULAR HGB CONC 33.8 g/dl (32.0-36.5); MEAN CORPUSCULAR VOLUME 88.2 fl (80.0-96.0); PLATELET COUNT, AUTOMATED 275 10^3/uL (150-450); RED BLOOD COUNT 3.89 10^6/uL (4.00-5.40); WHITE BLOOD COUNT 8.1 10^3/uL (4.0-10.0)
[2024-11-04 15:05] LABS: URIC ACID 4.6 MG/DL (3.1-7.8)
[2024-11-04 15:07] LABS: LDH LACTATE DEHYDROGENASE 182 U/L (120-246)
[2024-11-04 15:08] LABS: ALT/SGPT 13 U/L (7.0-40); AST/SGOT 21 U/L (<34); BILIRUBIN,TOTAL 0.5 MG/DL (0.3-1.2); CREATININE FOR GFR 0.57 MG/DL (0.55-1.30); GLOMERULAR FILTRATION RATE > 60.0 (>60)
[2024-11-04 15:30] LABS: TOTAL PROTEIN,RANDOM URINE 19.4 MG/DL (0.0-14.0)
[2024-11-04 15:35] LABS: CREATININE,RANDOM URINE 86.7 MG/DL
== END ==
LOC: M PLALAB 11:53
PROVIDERS: ATTEND Advanced Practice Midwife
DX: O16.3 Unspecified maternal hypertension, third trimester (principal)

== ENCOUNTER → 2024-11-04 | Outpatient (CLI) | payer BC ==
[2024-11-04 15:13] LABS: ALBUMIN 2.7 G/DL (3.2-5.2); ALKALINE PHOSPHATASE 139 U/L (35-104); ALT/SGPT 13 U/L (7.0-40); AST/SGOT 21 U/L (<34); BILIRUBIN,TOTAL 0.5 MG/DL (0.3-1.2); BLOOD UREA NITROGEN < 5 MG/DL (9-23); CALCIUM LEVEL 9.2 MG/DL (8.5-10.1); CARBON DIOXIDE LEVEL 24 MMOL/L (20-31); CHLORIDE LEVEL 107 MMOL/L (98-107); CREATININE FOR GFR 0.57 MG/DL (0.55-1.30); GLOMERULAR FILTRATION RATE > 60.0 (>60); GLUCOSE, FASTING 76 MG/DL (60-100); POTASSIUM SERUM 3.8 MMOL/L (3.5-5.1); SODIUM LEVEL 141 MMOL/L (136-145); TOTAL PROTEIN 6.2 G/DL (5.7-8.2)
== END ==
LOC: M PLALAB 11:57
PROVIDERS: ATTEND Obstetrics & Gynecology
DX: O99.13 Other diseases of the blood and blood-forming organs and certain disorders involving the immune mechanism complicating the puerperium (principal)

== ENCOUNTER 2024-11-05 11:41 | Outpatient (CLI) | payer BC ==
[~2024-11-05] VITALS: Ht 170.2 cm; Wt 88.0 kg
[~2024-11-05 11:41] MED LIST changes: -ACET-907 PO; -FAMO20TA PO; -SERT-141 PO
[2024-11-05] MEDS ORDERED: ACET-907 PO (12:03)
[2024-11-05] MEDS ORDERED: SERT-141 PO (12:03)
[2024-11-05] MEDS ORDERED: FAMO20TA PO (12:03)
[2024-11-05 12:05] VITALS: BP 146/90; O2SAT 98
[2024-11-05] MEDS ORDERED: HOME MED LIST COMPLETE! XX SCH (12:05)
[2024-11-05 12:16] VITALS: BP 134/84
[2024-11-05 12:31] LABS: HEMATOCRIT 31.3 % (36.0-47.0); HEMOGLOBIN 10.8 g/dl (12.0-15.5); MEAN CORPUSCULAR HEMOGLOBIN 29.8 pg (27.0-33.0); MEAN CORPUSCULAR HGB CONC 34.5 g/dl (32.0-36.5); MEAN CORPUSCULAR VOLUME 86.2 fl (80.0-96.0); PLATELET COUNT, AUTOMATED 261 10^3/uL (150-450); RED BLOOD COUNT 3.63 10^6/uL (4.00-5.40); WHITE BLOOD COUNT 7.8 10^3/uL (4.0-10.0)
[2024-11-05 12:45] LABS: TOTAL PROTEIN,RANDOM URINE 27.2 MG/DL (0.0-14.0)
[2024-11-05 12:47] VITALS: BP 127/84
[2024-11-05 12:50] LABS: CREATININE,RANDOM URINE 121.6 MG/DL
[2024-11-05 13:06] LABS: ALBUMIN 2.5 G/DL (3.2-5.2); ALKALINE PHOSPHATASE 131 U/L (35-104); ALT/SGPT 13 U/L (7.0-40); AST/SGOT 19 U/L (<34); BILIRUBIN,TOTAL 0.4 MG/DL (0.3-1.2); BLOOD UREA NITROGEN < 5 MG/DL (9-23); CALCIUM LEVEL 8.6 MG/DL (8.5-10.1); CARBON DIOXIDE LEVEL 22 MMOL/L (20-31); CHLORIDE LEVEL 110 MMOL/L (98-107); CREATININE FOR GFR 0.52 MG/DL (0.55-1.30); GLOMERULAR FILTRATION RATE > 60.0 (>60); GLUCOSE, FASTING 72 MG/DL (60-100); POTASSIUM SERUM 3.6 MMOL/L (3.5-5.1); SODIUM LEVEL 140 MMOL/L (136-145)
== END 2024-11-05 13:30 | disposition home or self-care (01) ==
LOC: M LDO 11:41
PROVIDERS: ATTEND Obstetrics & Gynecology
DX: O26.893 Other specified pregnancy related conditions, third trimester (principal); O99.343 Other mental disorders complicating pregnancy, third trimester; R03.0 Elevated blood-pressure reading, without diagnosis of hypertension; F41.1 Generalized anxiety disorder; Z3A.34 34 weeks gestation of pregnancy
CPT/HCPCS: 36415; 59025; 80053; 82570; 84156; 85027; G0463

== ENCOUNTER → 2024-11-11 | Outpatient (CLI) | payer BC ==
[~2024-11-11] MED LIST changes: +ACET-907 PO; +FAMO20TA PO; +SERT-141 PO
== END ==
LOC: M WHC 16:18
PROVIDERS: ATTEND Obstetrics & Gynecology
DX: O28.8 Other abnormal findings on antenatal screening of mother (principal); Z3A.35 35 weeks gestation of pregnancy

== ENCOUNTER → 2024-11-11 | Outpatient (REF) | payer BC | LOC: M SFHCWAGY 16:59 | PROVIDERS: ATTEND Obstetrics & Gynecology | DX: Z36.85 Encounter for antenatal screening for Streptococcus B (principal); Z3A.35 35 weeks gestation of pregnancy ==

== ENCOUNTER 2024-11-19 09:26 | Inpatient (IN) | payer BC ==
[2024-11-19] VITALS (15 sets, daily range): BP systolic 120–149; BP diastolic 76–100
[~2024-11-19] VITALS: Ht 170.2 cm; Wt 87.1 kg
[2024-11-19] MEDS ORDERED: HOME MED LIST COMPLETE! XX SCH (09:45)
[2024-11-19 10:02] LABS: HEMATOCRIT 34.2 % (36.0-47.0); HEMOGLOBIN 11.5 g/dl (12.0-15.5); MEAN CORPUSCULAR HEMOGLOBIN 28.3 pg (27.0-33.0); MEAN CORPUSCULAR HGB CONC 33.6 g/dl (32.0-36.5); PLATELET COUNT, AUTOMATED 245 10^3/uL (150-450); RED BLOOD COUNT 4.07 10^6/uL (4.00-5.40); WHITE BLOOD COUNT 9.2 10^3/uL (4.0-10.0)
[2024-11-19 10:24] LABS: LDH LACTATE DEHYDROGENASE 200 U/L (120-246)
[2024-11-19 10:26] LABS: ALT/SGPT 10 U/L (7.0-40); AST/SGOT 17 U/L (<34); BILIRUBIN,TOTAL 0.6 MG/DL (0.3-1.2); CREATININE FOR GFR 0.63 MG/DL (0.55-1.30); GLOMERULAR FILTRATION RATE > 60.0 (>60)
[2024-11-19 10:44] LABS: TOTAL PROTEIN,RANDOM URINE 51.2 MG/DL (0.0-14.0)
[2024-11-19 11:00] LABS: CREATININE,RANDOM URINE 241.2 MG/DL
[2024-11-19] MEDS: BETAMETHASONE SOLUSPAN 6MG/ML 5ML VIAL IM SCH (12:42)
[2024-11-19] MEDS ORDERED: OXYTOCIN DRIP 30 UNITS in IV 1 EA IV PRN (17:15)
[2024-11-19] MEDS ORDERED: LIDOCAINE 1% MDV 20ML VIAL INFIL PRN (17:15)
[2024-11-19] MEDS ORDERED: CARBOPROST TROMETHAMINE 250 MCG/ML AMP IM PRN (17:15)
[2024-11-19] MEDS ORDERED: TRANEXAMIC ACID INJection 1,000 MG in NS 100 ML IV PRN (17:15)
[2024-11-19] MEDS ORDERED: OXYTOCIN INJ 10UNITS/ML 1ML VIAL IM PRN (17:15)
[2024-11-20] VITALS (8 sets, daily range): BP systolic 137–150; BP diastolic 72–92
[2024-11-20 11:40] LABS: HEMATOCRIT 31.2 % (36.0-47.0); HEMOGLOBIN 10.6 g/dl (12.0-15.5); MEAN CORPUSCULAR HEMOGLOBIN 29.2 pg (27.0-33.0); PLATELET COUNT, AUTOMATED 235 10^3/uL (150-450); RED BLOOD COUNT 3.63 10^6/uL (4.00-5.40); WHITE BLOOD COUNT 11.4 10^3/uL (4.0-10.0)
[2024-11-20] MEDS: miSOPROStol 50MCG 1/2 TABLET PO SCH (14:18)
[2024-11-20 15:44] LABS: HIV 1&2 SCREEN NEGATIVE (NEGATIVE)
[2024-11-20 15:52] LABS: HEPATITIS C VIRUS ABY INDEX < 0.02 INDEX (<0.8)
[2024-11-21] VITALS (50 sets, daily range): BP systolic 118–177; BP diastolic 72–99
[2024-11-21] MEDS: OXYTOCIN DRIP 30 UNITS in IV 1 EA IV SCH (10:27)
[2024-11-21] MEDS: LR 1,000 ML IV SCH (10:27)
[2024-11-21] MEDS ORDERED: diphenhydrAMINE 50MG/ML VIAL IV PRN (16:25)
[2024-11-21] MEDS ORDERED: ePHEDrine SULFATE 25 MG/5 ML(5MG/ML) SYRINGE IVP PRN (16:25)
[2024-11-21] MEDS ORDERED: EPIDURAL/PCA KEYS XX PRN (16:25)
[2024-11-21] MEDS ORDERED: LR 500 ML IV PRN (16:25)
[2024-11-21] MEDS ORDERED: NALOXONE INJ 0.4MG/1ML VIAL IV PRN (16:25)
[2024-11-21] MEDS: FENTANYL/ROPIVACAINE/NACL BAG 100 ML EPIDURAL SCH (17:04)
[2024-11-21] MEDS: ONDANSETRON 4MG 2ML VIAL IV PRN (22:51)
[2024-11-22] VITALS (8 sets, daily range): BP systolic 125–140; BP diastolic 70–87; O2SAT 97–99
[2024-11-22] MEDS ORDERED: METHYLERGONOVINE MALEATE 0.2 MG TAB PO PRN (01:10)
[2024-11-22] MEDS ORDERED: DOCUSATE SODIUM 100MG CAPSULE PO PRN (01:10)
[2024-11-22] MEDS: DIBUCAINE 1% OINTMENT 30GM TOP PRN (03:51)
[2024-11-22] MEDS: PRENATAL VITAMINS CHEWABLE TABLET PO SCH (08:16)
[2024-11-22] MEDS: ACETAMINOPHEN 500 MG TAB PO PRN (08:16)
[2024-11-22] MEDS: RHOGAM 300MCG (1500IU) INJ IM SCH (15:55)
[2024-11-22] MEDS: IBUPROFEN 800 MG TAB PO PRN (20:52)
[2024-11-23 06:56] VITALS: BP 141/85; O2SAT 99
[2024-11-23] MEDS: IBUPROFEN 600MG TAB PO PRN (17:58)
[2024-11-23 18:00] VITALS: BP 136/94; O2SAT 99
[2024-11-24 06:00] VITALS: BP 155/87; O2SAT 100
[2024-11-24] MEDS: MEASLES,MUMPS,RUBELLA VACCINE INJ (MMR-II) SC.IMMUN ONE (07:23)
== END 2024-11-24 11:58 | disposition home or self-care (01) | DRG 560 ==
LOC: M LDO 09:26 → M LDI 13:00 → M OBS 11-22 02:35
PROVIDERS: ADMIT Advanced Practice Midwife; ATTEND Specialist
PROC: 3E0P7GC Introduction of Other Therapeutic Substance into Female Reproductive, Via Natural or Artificial Opening (ICD-10-PCS; 2024-11-19)
PROC: 10E0XZZ Delivery of Products of Conception, External Approach (ICD-10-PCS; principal; 2024-11-22)
PROC: 0KQM0ZZ Repair Perineum Muscle, Open Approach (ICD-10-PCS; 2024-11-22)
PROC: 10907ZC Drainage of Amniotic Fluid, Therapeutic from Products of Conception, Via Natural or Artificial Opening (ICD-10-PCS; 2024-11-22)
DX: O13.4 Gestational [pregnancy-induced] hypertension without significant proteinuria, complicating childbirth (principal); O70.1 Second degree perineal laceration during delivery; Z3A.36 36 weeks gestation of pregnancy; Z79.899 Other long term (current) drug therapy; Z88.6 Allergy status to analgesic agent; Z88.5 Allergy status to narcotic agent; Z37.0 Single live birth

== ENCOUNTER → 2025-10-23 | Outpatient (RCR) ==
[~2025-10-23] MED LIST changes: +DROS1TAB PO; -DROS3TAB PO
== END ==
LOC: M EMPSSV 10-06 09:34
PROVIDERS: ATTEND Family Medicine
DX: Z20.828 Contact with and (suspected) exposure to other viral communicable diseases (principal)